=== PATIENT | female | born 1955 | race Caucasian/White ===

== ENCOUNTER 2018-11-07 10:33 | Day surgery (SDC) | payer BC ==
[~2018-11-07] VITALS: Ht 152.4 cm; Wt 98.3 kg
[~2018-11-07 10:33] MED LIST: ABAC300; ALBU90OI6 INH; ALBU90OI61 INH; ANTIOXIDANT FO1 EACH PO; ASCO500 PO; ASPI325 PO; ASPI325EC PO; ATOR40TA PO; BASAGLAR K100 UNIT/1 SC; BETA-CAROTENE PO; CEFP200 PO; CHOL10002; CYAN500 PO; DOXE10 PO; ESTNOR; FLUT44OIA INH; FURO40; Fibercon625 MG PO; Flovent Disku100 MCG INH; GABA100 PO; GEMF600 PO; IBUP800 PO; INS70/30I; INSLI100I; INSUASPI SC; INSUASPI SUBQ; INSULANI SC; INSULANI SUBQ; INSULANPEN; LISI20 PO; LISI5 PO; LO-DOSE ASPIRIN81 MG PO; METF500 PO; MULVITMINE PO; NIAC500 PO; NIACIN PO; Norco 5-325 Ta1 EACH PO; Novolin R100 UNIT/M SC; OMEG1CAP30 PO; OMEP20ER PO; ONDA4ODT MM; POLY500 PO; POTA10T; POTA10T PO; POTA20PAC PO; PRENATAL CAPLE1 EACH PO; PROM25S PR; Prinivil10 MG PO; ROSU10TA PO; ROSU5; SIMV40 PO; SPIR25 PO; TOCO400 PO; TRULICITY0.75 MG/0. SC; Verotin-Gr Cap1 EACH PO; ZINC15 PO; Zofran Odt4 MG SL; [UNRECOGNIZED DRUG - OTHER] PO; [UNRECOGNIZED DRUG - OTHER] PO
--- NOTE | 2018-11-07 12:12 | NUR ---
11/07/18 1212 Kalyani Elizabeth RN ADMINISTERED 25MG IV FENTANYL AND 1MG IV VERSED PER 'S ORDERS AT 1152. DR BRUCE USED THE SONOSITE AND NUMBING MEDICATION. AT 1200 RN ADMINISTERED AN ADDITIONAL 25MCG OF FENTANYL PER 'S ORDERS. PT TOLERATED PROCEDURE WELL. VSS. PT IS NOW ON 2L OF O2 PER DR MANCERA'S ORDERS. VSS. O2 SATS ARE 98% ON 2L OF O2 PER NASAL CANULA.
--- NOTE | 2018-11-07 13:52 | NUR ---
11/07/18 1351 Parvin Zepeda AT 1325 ASSUMED CARE OF PT FROM ORD.ERF. PT SITTING IN RECLINER SPEAKING WITH DAUGHTER, EXPRESSED WISHES TO GO HOME. KRISIT PO FLUIDS WELL. I GAVE PT A REUSEABLE ICE PACK WITH INSTRUCTIONS FOR USE. ALSO GIVEN SLING, APPLIED AND INSTRUCTED IN USE
== END 2018-11-07 23:59 | disposition home or self-care (01) ==
LOC: ORSCSDS 10:33
PROVIDERS: Orthopaedic Surgery
PROC: 01N54ZZ Release Median Nerve, Percutaneous Endoscopic Approach (ICD-10-PCS; principal; 2018-11-07 11:45)
DX: G56.01 Carpal tunnel syndrome, right upper limb (principal); I10 Essential (primary) hypertension; K21.9 Gastro-esophageal reflux disease without esophagitis; G47.33 Obstructive sleep apnea (adult) (pediatric); E11.9 Type 2 diabetes mellitus without complications; E66.9 Obesity, unspecified; Z68.41 Body mass index [BMI] 40.0-44.9, adult; Z79.82 Long term (current) use of aspirin; Z79.84 Long term (current) use of oral hypoglycemic drugs; Z79.4 Long term (current) use of insulin; Z79.899 Other long term (current) drug therapy
CPT/HCPCS: 82947; J0690; J2250; J3010; J7120

== ENCOUNTER 2018-11-20 09:42 | Day surgery (SDC) | payer MEDICARE, BC ==
[~2018-11-20] VITALS: Ht 152.4 cm; Wt 97.4 kg
== END 2018-11-20 11:29 | disposition home or self-care (01) ==
LOC: ORSCSDS 09:42
PROVIDERS: Internal Medicine Gastroenterology
PROC: 0DBN8ZX Excision of Sigmoid Colon, Via Natural or Artificial Opening Endoscopic, Diagnostic (ICD-10-PCS; principal; 2018-11-20 11:00)
DX: Z12.11 Encounter for screening for malignant neoplasm of colon (principal); K63.5 Polyp of colon; K57.30 Diverticulosis of large intestine without perforation or abscess without bleeding; Z86.010 Personal history of colon polyps; Z80.0 Family history of malignant neoplasm of digestive organs; I10 Essential (primary) hypertension; Z68.41 Body mass index [BMI] 40.0-44.9, adult; G47.30 Sleep apnea, unspecified; E11.9 Type 2 diabetes mellitus without complications; D68.51 Activated protein C resistance; Z79.82 Long term (current) use of aspirin; Z79.4 Long term (current) use of insulin; Z79.899 Other long term (current) drug therapy
CPT/HCPCS: 82947; 88305; J2704; J7120

== ENCOUNTER 2021-12-23 08:33 | Emergency (ER) | payer MEDICARE, BC ==
[~2021-12-23] VITALS: Ht 149.9 cm; Wt 95.2 kg
[~2021-12-23 08:33] MED LIST changes: +ALBU90OI INH; +BENZ100A PO; +Flovent 44 mc10.6 GM INH; +GABA300 PO; +HUMALOG KW100 UNIT/1 SC; +IBU800 MG PO; +NOVOLOG FL100 UNIT/3; +OXYB5ER PO; -TRULICITY0.75 MG/0. SC; +TRULICITY4.5 MG/0.5 SQ
[2021-12-23] MEDS ORDERED: ATOR40TA PO (09:07)
[2021-12-23] MEDS ORDERED: MAGNESIUM OXID500 MG PO (09:07)
[2021-12-23] MEDS ORDERED: ZINC15 PO (09:08)
[2021-12-23 09:16] LABS: BASOPHILS ABSOLUTE AUTO 0.05 K/mm3 (0.00-0.23); BASOPHILS PERCENT AUTO 1 % (0-2); EOSINOPHILS ABSOLUTE AUTO 0.23 K/mm3 (0.00-0.68); EOSINOPHILS PERCENT AUTO 3 % (0-6); Hemoglobin 13.2 g/dL (11.5-16.0); IMMATURE GRAN ABSOLUTE AUTO 0.02 K/mm3 (0.00-0.10); IMMATURE GRAN PERCENT AUTO 0 % (0-1); LYMPHOCYTES ABSOLUTE AUTO 2.38 K/mm3 (0.84-5.20); LYMPHOCYTES PERCENT AUTO 31 % (21-46); MONOCYTES ABSOLUTE AUTO 0.74 K/mm3 (0.16-1.47); MONOCYTES PERCENT AUTO 10 % (4-13); Mean Corpuscular HGB 30.9 pg (26.0-34.0); Mean Corpuscular HGB Conc 33.8 g/dL (31.5-36.5); Mean Corpuscular Volume 91 fL (80-100); Mean Platelet Volume 10.9 fL (9.1-12.4); NEUTROPHILS ABSOLUTE AUTO 4.17 K/mm3 (1.96-9.15); NEUTROPHILS PERCENT AUTO 55 % (41-73); Platelet Count 236 K/mm3 (150-400); RDW Standard Deviation 46.6 fL (35.1-46.3); Red Blood Cell Count 4.27 M/mm3 (3.80-5.20); White Blood Cell Count 7.59 K/mm3 (4.00-11.30)
[2021-12-23 10:26] LABS: Albumin, Blood 3.4 g/dL (3.4-5.0); Albumin/Globulin Ratio 0.9 (0.8-1.8); Bilirubin, Total 0.6 mg/dL (0.1-1.0); Bun/Creatinine Ratio 24.1 (12.0-20.0); Creatinine, Blood 0.46 mg/dL (0.40-1.00); Globulin, Blood 3.7 g/dL (2.2-4.0); Total Protein, Blood 7.1 g/dL (6.4-8.2)
[2021-12-23] MEDS ORDERED: AMOCLA875 PO (11:28)
[2021-12-23] MEDS ORDERED: PRED20 PO (11:29)
== END 2021-12-23 11:55 | disposition home or self-care (01) ==
LOC: ER 08:33
PROVIDERS: Emergency Medicine
DX: J20.9 Acute bronchitis, unspecified (principal); J44.0 Chronic obstructive pulmonary disease with (acute) lower respiratory infection; E11.9 Type 2 diabetes mellitus without complications; Z79.899 Other long term (current) drug therapy; Z79.4 Long term (current) use of insulin; Z79.82 Long term (current) use of aspirin
CPT/HCPCS: 71046; 80053; 83880; 84484; 85025; 93005; 93010; 94640; 94664; J1200; J2930

== ENCOUNTER 2022-03-10 11:32 | Day surgery (SDC) | payer MEDICARE, BC ==
[~2022-03-10] VITALS: Ht 149.9 cm; Wt 91.4 kg
[~2022-03-10 11:32] MED LIST changes: +AMOCLA875 PO; +MAGNESIUM OXID500 MG PO; +PRED20 PO
--- NOTE | 2022-03-10 12:41 | NUR ---
Ambulatory in Day Surgery History, Chart, Medications and Allergies reviewed before start of procedure. Pre-Op teaching done. Pt verbalizes understanding. Patient States Post-Procedure ride home has been arranged. Lungs diminished left great than right to anterior and posterior side. Occasional dry horse cough. Slight SOB. Sats >90%. Patient States Post-Procedure ride home has been arranged with Daughter.
[2022-03-10] MEDS ORDERED: MAGNESIUM OXID500 MG PO (12:53)
--- NOTE | 2022-03-10 16:35 | NUR ---
Discharge instructions reviewed with patient. Patient verbalizes understanding. Copy given to patient to take home. Discharged via wheelchair to private car for ride home.
== END 2022-03-10 16:00 | disposition home or self-care (01) ==
LOC: ORSCMMR 11:32
PROVIDERS: Surgery
PROC: 0JH60WZ Insertion of Totally Implantable Vascular Access Device into Chest Subcutaneous Tissue and Fascia, Open Approach (ICD-10-PCS; principal; 2022-03-10 13:30)
DX: C50.411 Malignant neoplasm of upper-outer quadrant of right female breast (principal); E11.9 Type 2 diabetes mellitus without complications; D68.51 Activated protein C resistance; F41.9 Anxiety disorder, unspecified; J45.909 Unspecified asthma, uncomplicated; I10 Essential (primary) hypertension; G47.33 Obstructive sleep apnea (adult) (pediatric); J44.9 Chronic obstructive pulmonary disease, unspecified; E66.01 Morbid (severe) obesity due to excess calories; Z68.41 Body mass index [BMI] 40.0-44.9, adult; Z79.82 Long term (current) use of aspirin; Z79.84 Long term (current) use of oral hypoglycemic drugs; Z79.4 Long term (current) use of insulin; Z79.51 Long term (current) use of inhaled steroids; Z79.899 Other long term (current) drug therapy
CPT/HCPCS: 77001; 82947; C1788; J0690; J1100; J1642; J2250; J2405; J2704; J2795; J3010; J7120

== ENCOUNTER → 2022-05-23 | Outpatient (CLI) | payer MEDICARE, BC ==
[2022-05-23 15:52] LABS: BASOPHILS ABSOLUTE AUTO 0.08 K/mm3 (0.00-0.23); BASOPHILS PERCENT AUTO 1 % (0-2); EOSINOPHILS ABSOLUTE AUTO 0.01 K/mm3 (0.00-0.68); EOSINOPHILS PERCENT AUTO 0 % (0-6); Hematocrit 35.6 % (33.0-51.0); Hemoglobin 11.9 g/dL (11.5-16.0); IMMATURE GRAN ABSOLUTE AUTO 0.16 K/mm3 (0.00-0.10); IMMATURE GRAN PERCENT AUTO 1 % (0-1); LYMPHOCYTES ABSOLUTE AUTO 3.17 K/mm3 (0.84-5.20); LYMPHOCYTES PERCENT AUTO 21 % (21-46); MONOCYTES ABSOLUTE AUTO 1.09 K/mm3 (0.16-1.47); MONOCYTES PERCENT AUTO 7 % (4-13); Mean Corpuscular HGB 30.7 pg (26.0-34.0); Mean Corpuscular HGB Conc 33.4 g/dL (31.5-36.5); Mean Corpuscular Volume 92 fL (80-100); NEUTROPHILS ABSOLUTE AUTO 10.34 K/mm3 (1.96-9.15); NEUTROPHILS PERCENT AUTO 70 % (41-73); NRBC ABSOLUTE 0.03 K/mm3 (0.00-0.02); NRBC Auto 0.2 /100 WBC (0.0-0.2); RDW Coefficient Variation 16.3 % (11.7-14.2); RDW Standard Deviation 53.4 fL (35.1-46.3); Red Blood Cell Count 3.87 M/mm3 (3.80-5.20); White Blood Cell Count 14.85 K/mm3 (4.00-11.30)
[2022-05-23 16:02] LABS: Albumin, Blood 2.9 g/dL (3.4-5.0); Albumin/Globulin Ratio 0.6 (0.8-1.8); Bun/Creatinine Ratio 8.2 (12.0-20.0); Calcium, Blood 8.9 mg/dL (8.5-10.1); Creatinine, Blood 0.61 mg/dL (0.40-1.00); Globulin, Blood 4.5 g/dL (2.2-4.0); Potassium, Blood 4.1 mmol/L (3.5-5.5); Total Protein, Blood 7.4 g/dL (6.4-8.2)
[2022-05-23 16:11] LABS: Mean Platelet Volume 10.4 fL (9.1-12.4); Platelet Count 255 K/mm3 (150-400)
== END | disposition home or self-care (01) ==
LOC: LAB 15:46 → LAB SHORT 15:46
PROVIDERS: Physician Assistant
DX: H70.009 Acute mastoiditis without complications, unspecified ear (principal)
CPT/HCPCS: 80053; 85025

== ENCOUNTER 2022-05-24 12:41 | Inpatient (IN) | payer MEDICARE, BC ==
[~2022-05-24] VITALS: Ht 149.9 cm; Wt 78.9 kg
[2022-05-24 14:43] LABS: BASOPHILS ABSOLUTE AUTO 0.08 K/mm3 (0.00-0.23); BASOPHILS PERCENT AUTO 1 % (0-2); EOSINOPHILS PERCENT AUTO 0 % (0-6); Hematocrit 37.2 % (33.0-51.0); Hemoglobin 12.8 g/dL (11.5-16.0); IMMATURE GRAN ABSOLUTE AUTO 0.23 K/mm3 (0.00-0.10); IMMATURE GRAN PERCENT AUTO 1 % (0-1); LYMPHOCYTES ABSOLUTE AUTO 2.44 K/mm3 (0.84-5.20); LYMPHOCYTES PERCENT AUTO 15 % (21-46); MONOCYTES ABSOLUTE AUTO 0.89 K/mm3 (0.16-1.47); MONOCYTES PERCENT AUTO 5 % (4-13); Mean Corpuscular HGB 30.8 pg (26.0-34.0); Mean Corpuscular HGB Conc 34.4 g/dL (31.5-36.5); Mean Corpuscular Volume 89 fL (80-100); NEUTROPHILS ABSOLUTE AUTO 12.79 K/mm3 (1.96-9.15); NEUTROPHILS PERCENT AUTO 78 % (41-73); RDW Coefficient Variation 16.3 % (11.7-14.2); Red Blood Cell Count 4.16 M/mm3 (3.80-5.20); White Blood Cell Count 16.43 K/mm3 (4.00-11.30)
[2022-05-24 14:57] LABS: Albumin/Globulin Ratio 0.6 (0.8-1.8); Bilirubin, Total 1.3 mg/dL (0.1-1.0); Bun/Creatinine Ratio 14.6 (12.0-20.0); C-REACTIVE PROTEIN, EXT RANGE 14.1 mg/dL (0.000-0.300); Calcium, Blood 9.1 mg/dL (8.5-10.1); Creatinine, Blood 0.41 mg/dL (0.40-1.00); Potassium, Blood 4.1 mmol/L (3.5-5.5)
[2022-05-24 15:01] LABS: Mean Platelet Volume 10.2 fL (9.1-12.4); Platelet Count 270 K/mm3 (150-400)
--- NOTE | 2022-05-25 03:31 | NUR ---
Patient resting in bed, no complaints of pain or discomfort.
[2022-05-25 05:29] LABS: Albumin, Blood 2.1 g/dL (3.4-5.0); Albumin/Globulin Ratio 0.6 (0.8-1.8); Bilirubin, Total 0.6 mg/dL (0.1-1.0); Bun/Creatinine Ratio 10.9 (12.0-20.0); Calcium, Blood 7.8 mg/dL (8.5-10.1); Creatinine, Blood 0.37 mg/dL (0.40-1.00); Globulin, Blood 3.6 g/dL (2.2-4.0); Potassium, Blood 3.3 mmol/L (3.5-5.5)
[2022-05-25 05:35] LABS: BASOPHILS ABSOLUTE AUTO 0.07 K/mm3 (0.00-0.23); BASOPHILS PERCENT AUTO 1 % (0-2); EOSINOPHILS PERCENT AUTO 0 % (0-6); Hematocrit 29.9 % (33.0-51.0); Hemoglobin 10.2 g/dL (11.5-16.0); IMMATURE GRAN ABSOLUTE AUTO 0.16 K/mm3 (0.00-0.10); IMMATURE GRAN PERCENT AUTO 1 % (0-1); LYMPHOCYTES ABSOLUTE AUTO 2.72 K/mm3 (0.84-5.20); LYMPHOCYTES PERCENT AUTO 22 % (21-46); MONOCYTES ABSOLUTE AUTO 0.84 K/mm3 (0.16-1.47); MONOCYTES PERCENT AUTO 7 % (4-13); Mean Corpuscular HGB 30.4 pg (26.0-34.0); Mean Corpuscular HGB Conc 34.1 g/dL (31.5-36.5); Mean Corpuscular Volume 89 fL (80-100); Mean Platelet Volume 10.2 fL (9.1-12.4); NEUTROPHILS ABSOLUTE AUTO 8.88 K/mm3 (1.96-9.15); NEUTROPHILS PERCENT AUTO 70 % (41-73); NRBC ABSOLUTE 0.02 K/mm3 (0.00-0.02); NRBC Auto 0.2 /100 WBC (0.0-0.2); Platelet Count 220 K/mm3 (150-400); RDW Coefficient Variation 16.1 % (11.7-14.2); RDW Standard Deviation 51.9 fL (35.1-46.3); Red Blood Cell Count 3.36 M/mm3 (3.80-5.20); White Blood Cell Count 12.67 K/mm3 (4.00-11.30)
[2022-05-25 06:06] LABS: Total Protein, Blood 5.7 g/dL (6.4-8.2)
--- NOTE | 2022-05-25 17:20 | NUR ---
SHIFT SUMMARY MS COYNE IS A&OX4. SHE HAS MAIN C/O R FACIAL SWELLING AND TENDERNESS. DULAUDID 0.5MG IV GIVEN FOR PAIN ONCE SO FAR THIS SHIFT. SHE C/O SOME NAUSEA JUST NOW, SAID THAT PHENERGAN PO WORKED FOR HER AT HOME SO TELEPHONE ORDER FROM DR LE FOR PHENERGAN 12.5-25MG PO Q6HRS PRN READ BACK AND ENTERED INTO [employer]. SHE IS STAND BY ASSISTANCE TO THE BATHROOM, HAS BEEN UP TO VOID SEVERAL TIMES AND HAS STEADY GAIT. IVF NS AT 75CC/HR CONTINUOUS. BLOOD GLUCOSE MEASUREMENTS AT 151-174 WITH NO COVERAGE. DIET CHANGED TO MECHANICAL SOFT ADA PER PT PREFERENCE. FACIAL ULTRASOUND [place]BLANC AT BEDSIDE THIS MORNING. BED LOW, CALL LIGHT IN REACH.
--- NOTE | 2022-05-26 06:32 | NUR ---
HYDROGEN PLANT OPERATOR SUMMARY PT A/OX4. DAUGHTER BRADLEY AT BEDSIDE AT START OF SHIFT. PT LEFT FA IV LEAKING. DC'D IV. PT STATES IV WAS PLACED USING ULTRASOUND. MULTIPLE ATTEMPTS TO START IV WITH ULTRASOUND NOT SUCCESSFUL. CALL TO [facility]SULTANT/DR HEWITT--NEW ORDER TO ACCESS CHEST METAPORT (PLACED FOR CHEMO TREATMENTS). PORT ACCESSED WITHOUT INCIDENT; CHARGE NURSE PRESENT FOR ACCESS. STERILE TECHNICHE USED. PT TOLERATED WELL; BLOOD RETURN AND FLUSH 2X. PT HAS BLOOD CLOTTING DISORDER AND CAN'T TAKE HEPARIN/LOVENOX. PT CURRENTLY GETTING NS 75MLS HR; WILL RUN KVO WHEN COMPLETE. PT HAD EPISODE OF NAUSEA AND VOMITTING AFTER GETTING DOSE OF IV DILAUDID. GAVE PT PO PHENERGAN. RIGHT SIDE OF NECK/FACE/EAR REMAINS RED/SWOLLEN. PT REPORTS CONSTANT PAINFULNESS; INCREASED WITH MOVEMENT/EATING/TALKING. PT HAD ANOTHER EPISODE OF N&v APROX 0600; MORNING MEDS NOT GIVEN DUE TO VOMMITING. CALL TO [facility] [employer] CONSULTANT/DR BALDERAS--NEW ORDER FOR ZOFRAN IV Q6 PRN. PT IS SBA TO BATHROOM; ABLE TO MAKE NEEDS KNOWN. CALL LIGHT IN REACH.
[2022-05-26 07:41] LABS: BASOPHILS ABSOLUTE AUTO 0.06 K/mm3 (0.00-0.23); BASOPHILS PERCENT AUTO 1 % (0-2); EOSINOPHILS PERCENT AUTO 0 % (0-6); Hematocrit 31.3 % (33.0-51.0); Hemoglobin 10.1 g/dL (11.5-16.0); IMMATURE GRAN ABSOLUTE AUTO 0.06 K/mm3 (0.00-0.10); IMMATURE GRAN PERCENT AUTO 1 % (0-1); LYMPHOCYTES ABSOLUTE AUTO 1.64 K/mm3 (0.84-5.20); LYMPHOCYTES PERCENT AUTO 15 % (21-46); MONOCYTES ABSOLUTE AUTO 0.89 K/mm3 (0.16-1.47); MONOCYTES PERCENT AUTO 8 % (4-13); Mean Corpuscular HGB 30.1 pg (26.0-34.0); Mean Corpuscular HGB Conc 32.3 g/dL (31.5-36.5); Mean Corpuscular Volume 93 fL (80-100); NEUTROPHILS PERCENT AUTO 76 % (41-73); Platelet Count 211 K/mm3 (150-400); RDW Coefficient Variation 16.5 % (11.7-14.2); Red Blood Cell Count 3.35 M/mm3 (3.80-5.20); White Blood Cell Count 11.15 K/mm3 (4.00-11.30)
[2022-05-26 08:01] LABS: Calcium, Blood 7.9 mg/dL (8.5-10.1); Creatinine, Blood 1.41 mg/dL (0.40-1.00); Potassium, Blood 3.6 mmol/L (3.5-5.5); Vancomycin, Trough 19.7 ug/mL (5.0-10.0)
--- NOTE | 2022-05-26 17:31 | NUR ---
DAYSHIFT SUMMARY Patient doing well this shift, no reports of nausea or vomiting. Continues to c/o pain and swelling in right side of face, Poor oral intake this shift, IV fluids infusing via mediport. IV ABX administred this shift. Patient resting comfortably most of the day. UA sent to lab. Vitals stable. Will continue plan of care.
--- NOTE | 2022-05-27 04:13 | NUR ---
SHIFT SUMMARY; NO ACUTE CHANGES OVERNIGHT. THE PT DENIES ANY CHEST PAIN OR PRESSURE. THE PT DOES REPORT SOME PRETTY SEVERE PAIN R/T TO HER R FACE SWELLING AND INFLAMMATION. NS REMAINS RUNNING THROUGH THE PTS ACCESSED MEDIPORT. THE PT IS CURRENTLY RESTING IN BED WITH THE BED IN THE LOWEST POSITION AND THE CALL LIGHT AT BEDSIDE.
[2022-05-27 06:14] LABS: BASOPHILS ABSOLUTE AUTO 0.04 K/mm3 (0.00-0.23); BASOPHILS PERCENT AUTO 0 % (0-2); EOSINOPHILS PERCENT AUTO 0 % (0-6); Hematocrit 31.9 % (33.0-51.0); IMMATURE GRAN ABSOLUTE AUTO 0.05 K/mm3 (0.00-0.10); IMMATURE GRAN PERCENT AUTO 1 % (0-1); LYMPHOCYTES ABSOLUTE AUTO 2.24 K/mm3 (0.84-5.20); LYMPHOCYTES PERCENT AUTO 24 % (21-46); MONOCYTES ABSOLUTE AUTO 0.69 K/mm3 (0.16-1.47); MONOCYTES PERCENT AUTO 7 % (4-13); Mean Corpuscular HGB Conc 34.5 g/dL (31.5-36.5); Mean Corpuscular Volume 90 fL (80-100); NEUTROPHILS ABSOLUTE AUTO 6.31 K/mm3 (1.96-9.15); NEUTROPHILS PERCENT AUTO 68 % (41-73); RDW Coefficient Variation 16.2 % (11.7-14.2); RDW Standard Deviation 53.1 fL (35.1-46.3); Red Blood Cell Count 3.55 M/mm3 (3.80-5.20); White Blood Cell Count 9.33 K/mm3 (4.00-11.30)
[2022-05-27 06:17] LABS: Mean Platelet Volume 10.2 fL (9.1-12.4); Platelet Count 196 K/mm3 (150-400)
[2022-05-27 06:29] LABS: Bun/Creatinine Ratio 5.8 (12.0-20.0); Calcium, Blood 8.1 mg/dL (8.5-10.1); Creatinine, Blood 1.38 mg/dL (0.40-1.00); Potassium, Blood 3.4 mmol/L (3.5-5.5)
--- NOTE | 2022-05-27 08:00 | NUR ---
pt sitting on the side of the bed awake a/ox3, pleasant and coopertive with care, follows commands well, denies pain at this time, lungs are clear in upper vee dim in bases, resp even and unlabored, no cough noted, on r/a, hrr, no edema noted to b/l le, mediport in place infusing fluids as ordered, site is clear, btx4, abd flat soft nontender, voids without diff, skin c/w/d, maew, ambulates well, gait noted to be steady, just needs help managing her lines, rosalinda, call light in reach.
--- NOTE | 2022-05-27 19:32 | NUR ---
pt was switched to LR at 125mls/hr, is not making it to the toilet, so had her start using a bsc, doing well with that, no complaints of pain today, no acute changes, feels that her swelling is going down and is less painful, call light in reach.
--- NOTE | 2022-05-28 04:16 | NUR ---
SHIFT SUMMARY; NO ACUTE CHANGES OVERNIGHT.THE PT RESTED IN BED T/O THE NIGHT. NO REQUEST FOR PRN PAIN MEDICATIONS THUS FAR THIS SHIFT. THE PT USED THE BSC T/O THE NIGHT INDEPENDENTLY. LR REMAINS RUNNING AT 125MLS/HR. CURRENLTY THE PT IS RESTING IN BED WITH THE BED IN THE LOWEST POSITION AND THE CALL LIGHT AT BEDSIDE.
[2022-05-28 05:56] LABS: BASOPHILS ABSOLUTE AUTO 0.03 K/mm3 (0.00-0.23); BASOPHILS PERCENT AUTO 0 % (0-2); EOSINOPHILS PERCENT AUTO 0 % (0-6); Hematocrit 28.8 % (33.0-51.0); Hemoglobin 9.4 g/dL (11.5-16.0); IMMATURE GRAN ABSOLUTE AUTO 0.02 K/mm3 (0.00-0.10); IMMATURE GRAN PERCENT AUTO 0 % (0-1); LYMPHOCYTES ABSOLUTE AUTO 1.82 K/mm3 (0.84-5.20); LYMPHOCYTES PERCENT AUTO 27 % (21-46); MONOCYTES ABSOLUTE AUTO 0.56 K/mm3 (0.16-1.47); MONOCYTES PERCENT AUTO 8 % (4-13); Mean Corpuscular HGB 29.8 pg (26.0-34.0); Mean Corpuscular HGB Conc 32.6 g/dL (31.5-36.5); Mean Corpuscular Volume 91 fL (80-100); Mean Platelet Volume 10.1 fL (9.1-12.4); NEUTROPHILS ABSOLUTE AUTO 4.29 K/mm3 (1.96-9.15); NEUTROPHILS PERCENT AUTO 64 % (41-73); Platelet Count 201 K/mm3 (150-400); RDW Coefficient Variation 16.3 % (11.7-14.2); RDW Standard Deviation 53.9 fL (35.1-46.3); Red Blood Cell Count 3.15 M/mm3 (3.80-5.20); White Blood Cell Count 6.72 K/mm3 (4.00-11.30)
[2022-05-28 06:16] LABS: Calcium, Blood 8.1 mg/dL (8.5-10.1); Potassium, Blood 2.9 mmol/L (3.5-5.5)
--- NOTE | 2022-05-28 09:00 | NUR ---
pt laying in bed sleeping, wakes easily, a/ox4, pleasant and cooperative with care, follows commands well, denies pain at this time, lungs are clear in upper, dim in bases, resp even and unlabored, no cough noted, hrr, no edema noted, ppp+1, cap refill <3sec, vs stable, afebrile, iv is mediport, to right chest wall, site is clear infusing L.R. at 125mls/hr, btx4, abd flat soft nontender, voids without diff, skin c/w/d, maew, rosalinda, call light in reach.
--- NOTE | 2022-05-28 16:47 | NUR ---
pt reports the swelling behind her ear is bigger than this am, and is more painful, did start her on tramadal this afternoon, took a nap after it was administered, notified Dr. Almeida about increased swelling will continue to monitor, will call if she needs better pain control, call light in reach
--- NOTE | 2022-05-28 18:08 | NUR ---
started pt on norco for pain control, she feels the area behind the ear is swelling more, is aware, no further changes this shift, call light in reach.
--- NOTE | 2022-05-29 04:09 | NUR ---
SHIFT SUMMARY; NO ACUTE CHANGES OVERNIGHT. PT RESTED IN BED T/O THE NIGHT. PT DENIES ANY CHEST PAIN OR PRESSURE THIS SHIFT. PT REPORTS A 4/10 PAIN ASSOCIATED WITH HER SWOLLEN GLAND ON HER R SIDE OF HER FACE/EAR. HOWEVER, PT DID NOT REQUEST ANY PRN PAIN MEDS T/O THE NIGHT THUS FAR. PT WAS INDEPENDENT TO THE BSC T/O THE NIGHT. NS REMAINS RUNNING TRHOUGH THE PTS MEDIPORT ON THE L CHEST WALL. CURRENTLY THE PT IS RESTING IN BED WITH THE BED IN THE LOWEST POSITION AND THE CALL LIGHT AT BEDSIDE.
[2022-05-29 06:00] LABS: BASOPHILS ABSOLUTE AUTO 0.03 K/mm3 (0.00-0.23); BASOPHILS PERCENT AUTO 0 % (0-2); EOSINOPHILS PERCENT AUTO 0 % (0-6); Hematocrit 31.4 % (33.0-51.0); Hemoglobin 10.3 g/dL (11.5-16.0); IMMATURE GRAN ABSOLUTE AUTO 0.04 K/mm3 (0.00-0.10); IMMATURE GRAN PERCENT AUTO 0 % (0-1); LYMPHOCYTES ABSOLUTE AUTO 3.73 K/mm3 (0.84-5.20); LYMPHOCYTES PERCENT AUTO 38 % (21-46); MONOCYTES ABSOLUTE AUTO 0.82 K/mm3 (0.16-1.47); MONOCYTES PERCENT AUTO 8 % (4-13); Mean Corpuscular HGB 30.2 pg (26.0-34.0); Mean Corpuscular HGB Conc 32.8 g/dL (31.5-36.5); Mean Corpuscular Volume 92 fL (80-100); NEUTROPHILS ABSOLUTE AUTO 5.32 K/mm3 (1.96-9.15); NEUTROPHILS PERCENT AUTO 54 % (41-73); Platelet Count 230 K/mm3 (150-400); RDW Coefficient Variation 16.8 % (11.7-14.2); RDW Standard Deviation 56.5 fL (35.1-46.3); Red Blood Cell Count 3.41 M/mm3 (3.80-5.20); White Blood Cell Count 9.94 K/mm3 (4.00-11.30)
[2022-05-29 06:51] LABS: Bun/Creatinine Ratio 4.8 (12.0-20.0); Calcium, Blood 8.5 mg/dL (8.5-10.1); Creatinine, Blood 0.83 mg/dL (0.40-1.00); Potassium, Blood 3.3 mmol/L (3.5-5.5)
--- NOTE | 2022-05-29 08:54 | NUR ---
Patient is saline locked at this time after the ns infused. dr. Encarnacion will review medications upon visit for futher order.
--- NOTE | 2022-05-29 13:40 | NUR ---
Diarrhea x 2 this am, brown, liquid/soft. some nausea as well, prn zofran solutab given per new order.
--- NOTE | 2022-05-29 17:42 | NUR ---
PATIENT IS STILL FEELING DOWN, FATIGUED. PATIENT HAD DIARRHEA X 3 THIS AFTERNOON. BANANNA FLAKES ORDERED. SHE DISLIKES THE FLAKES, HAVING A HARD TIME GETTING THEM DOWN. LUNGS HAVE SOME SCATTERED BASE CRACKLES. PAIN BEHIND EAR DUE TO PEROTIDITIS IS WORSE TODAY THAN YESTERDAY. SOME MEDICATION/FLUID CHANGES MADE. SALINE LOCKED. POTASSIUM PO GIVEN. PATIENT IS ABLE TO USE BSC WITH SBA, COGNITION IS ALERT AND ORIENTATED. BELLY BUTTON HAS A SCAB IN THE INNER FOLD. MAY USE BACITRACIN ON THE SKIN.
--- NOTE | 2022-05-30 04:48 | NUR ---
SHIFT SUMMARY: Pt A/Ox4 and call light appropriate. No acute changes this shift. Pt has c/o pain near her R ear/neck area. PRN pain medication given. She denies nausea, SOB, dizziness. No loose stools this shift. She is able to ambulate to the bedside commode independantly.
[2022-05-30 05:52] LABS: BASOPHILS ABSOLUTE AUTO 0.03 K/mm3 (0.00-0.23); BASOPHILS PERCENT AUTO 1 % (0-2); EOSINOPHILS PERCENT AUTO 0 % (0-6); Hematocrit 29.3 % (33.0-51.0); Hemoglobin 9.6 g/dL (11.5-16.0); IMMATURE GRAN ABSOLUTE AUTO 0.02 K/mm3 (0.00-0.10); IMMATURE GRAN PERCENT AUTO 0 % (0-1); LYMPHOCYTES ABSOLUTE AUTO 2.22 K/mm3 (0.84-5.20); LYMPHOCYTES PERCENT AUTO 36 % (21-46); MONOCYTES ABSOLUTE AUTO 0.61 K/mm3 (0.16-1.47); MONOCYTES PERCENT AUTO 10 % (4-13); Mean Corpuscular HGB 30.2 pg (26.0-34.0); Mean Corpuscular HGB Conc 32.8 g/dL (31.5-36.5); Mean Corpuscular Volume 92 fL (80-100); Mean Platelet Volume 9.9 fL (9.1-12.4); NEUTROPHILS ABSOLUTE AUTO 3.33 K/mm3 (1.96-9.15); NEUTROPHILS PERCENT AUTO 54 % (41-73); Platelet Count 201 K/mm3 (150-400); RDW Coefficient Variation 16.4 % (11.7-14.2); RDW Standard Deviation 55.7 fL (35.1-46.3); Red Blood Cell Count 3.18 M/mm3 (3.80-5.20); White Blood Cell Count 6.21 K/mm3 (4.00-11.30)
[2022-05-30 11:05] LABS: Albumin, Blood 1.9 g/dL (3.4-5.0); Anion Gap 5 mmol/L (6-16); Blood Urea Nitrogen 6 mg/dL (8-24); Bun/Creatinine Ratio 7.2 (12.0-20.0); CO2, Blood 30 mmol/L (21-32); Calcium, Blood 8.6 mg/dL (8.5-10.1); Chloride, Blood 106 mmol/L (98-108); Creatinine, Blood 0.83 mg/dL (0.40-1.00); Glomerular Filtration Rate 77 (60-); Glucose, Blood 78 mg/dL (70-99); Magnesium, Blood 1.4 mg/dL (1.6-2.4); Phosphorus, Blood 3.2 mg/dL (2.5-4.9); Potassium, Blood 3.4 mmol/L (3.5-5.5); Sodium, Blood 141 mmol/L (136-145)
--- NOTE | 2022-05-30 17:59 | NUR ---
PLAN FOR PATIENT IS TO DISCHARGE TOMORROW. DR. DAVE IS ATTEMPTING TO REGULATE BS AND INSULIN BEFORE DC. GLARGINE WAS DECREAED TO 20 UNITS BID. PATIENT HAS NOT NEEDED SLIDING SCALE COVERAGE WITH BREAKFAST (LOW BS), LUNCH OR DINNER. PATIENT DID TAKE A ZOFRAN FOR NAUSEA LATE IN THE AFTERNOON. IT WAS EFFECTIVE. PATIENTS PAIN IS BEHIND THE RIGHT EAR NEAR THE PAROTID GLAND, WHICH IS SWOLLEN. ABX ARE PO. PATIENT IS EATING MEALS AND COGNITION IS INTACT.
--- NOTE | 2022-05-31 04:24 | NUR ---
SHIFT SUMMARY: PT A/OX4 AND CALL LIGHT APPROPRIATE. OVERNIGHT PT HAD SOME C/O PAIN IN HER R EAR/JAW REGION. SHE DID NOT UTILIZE ANY PRN PAIN MEDICATIONS THIS SHIFT. SHE DENIES NAUSEA, SOB, DIZZINESS, NUMBNESS/TINGLING AND NO LOOSE STOOLS THIS SHIFT. SHE IS ABLE TO USE THE BEDSIDE COMMODE INDEPENDANTLY. SHE IS HOPEFUL TO D/C SOON.
[2022-05-31 06:46] LABS: Albumin, Blood 2.1 g/dL (3.4-5.0); Anion Gap 6 mmol/L (6-16); Blood Urea Nitrogen 10 mg/dL (8-24); Bun/Creatinine Ratio 11.7 (12.0-20.0); CO2, Blood 30 mmol/L (21-32); Calcium, Blood 8.7 mg/dL (8.5-10.1); Chloride, Blood 105 mmol/L (98-108); Creatinine, Blood 0.86 mg/dL (0.40-1.00); Glomerular Filtration Rate 74 (60-); Glucose, Blood 97 mg/dL (70-99); Phosphorus, Blood 3.3 mg/dL (2.5-4.9); Potassium, Blood 3.6 mmol/L (3.5-5.5); Sodium, Blood 141 mmol/L (136-145)
[2022-05-31] MEDS ORDERED: ONDA4ODT MM (10:59)
[2022-05-31] MEDS ORDERED: SULTRIDS PO (10:59)
[2022-05-31] MEDS ORDERED: POTA10T PO (10:59)
--- NOTE | 2022-05-31 15:09 | NUR ---
[facility] HEPAR[facility] FL[facility] 5ML [facility] PH[facility]ACY, PT KRISTI WELL
== END 2022-05-31 12:20 | disposition home or self-care (01) | DRG 872 ==
LOC: ER 12:41 → MEDS 16:58
PROVIDERS: Family Medicine; Physician Assistant; ADMIT Internal Medicine
DX: A41.9 Sepsis, unspecified organism (principal); C78.00 Secondary malignant neoplasm of unspecified lung; D68.4 Acquired coagulation factor deficiency; N17.9 Acute kidney failure, unspecified; E87.20 Acidosis, unspecified; I50.32 Chronic diastolic (congestive) heart failure; K11.21 Acute sialoadenitis; K21.9 Gastro-esophageal reflux disease without esophagitis; C50.919 Malignant neoplasm of unspecified site of unspecified female breast; K74.60 Unspecified cirrhosis of liver; Z66 Do not resuscitate; E11.65 Type 2 diabetes mellitus with hyperglycemia; I11.0 Hypertensive heart disease with heart failure; E87.6 Hypokalemia; F41.9 Anxiety disorder, unspecified; K22.70 Barrett's esophagus without dysplasia; R13.10 Dysphagia, unspecified; J44.9 Chronic obstructive pulmonary disease, unspecified; G47.33 Obstructive sleep apnea (adult) (pediatric); Z92.21 Personal history of antineoplastic chemotherapy; Z88.8 Allergy status to other drugs, medicaments and biological substances; Z88.1 Allergy status to other antibiotic agents; Z79.899 Other long term (current) drug therapy; Z79.4 Long term (current) use of insulin; Z79.52 Long term (current) use of systemic steroids; Z79.82 Long term (current) use of aspirin; Z79.84 Long term (current) use of oral hypoglycemic drugs; Z90.710 Acquired absence of both cervix and uterus; Z98.890 Other specified postprocedural states; Z90.49 Acquired absence of other specified parts of digestive tract
CPT/HCPCS: 36415; 76536; 76770; 80048; 80053; 80069; 80202; 82570; 82947; 83605; 83735; 84132; 84300; 85025; 86140; 86141; 87040; 96365; 96366; 96367; 99285-25; A9270; J0295; J1170; J1642; J1650; J1815; J2405; J2543; J3370; J7030; J7050; J7120

== ENCOUNTER → 2022-06-13 | Outpatient (CLI) | payer MEDICARE, BC ==
[~2022-06-13] MED LIST changes: +SULTRIDS PO
[2022-06-15 11:22] LABS: C DIFFICILE DNA NEGATIVE (Negative)
== END ==
LOC: LAB SHORT 16:05 → LAB 16:05
PROVIDERS: Physician Assistant
DX: R19.7 Diarrhea, unspecified (principal)
CPT/HCPCS: 87493

== ENCOUNTER → 2022-07-03 | Outpatient (CLI) | payer MEDICARE, BC ==
[2022-07-03 15:28] LABS: BASOPHILS ABSOLUTE AUTO 0.01 K/mm3 (0.00-0.23); BASOPHILS PERCENT AUTO 0 % (0-2); EOSINOPHILS PERCENT AUTO 0 % (0-6); Hematocrit 30.4 % (33.0-51.0); Hemoglobin 10.4 g/dL (11.5-16.0); IMMATURE GRAN ABSOLUTE AUTO 0.03 K/mm3 (0.00-0.10); IMMATURE GRAN PERCENT AUTO 0 % (0-1); LYMPHOCYTES ABSOLUTE AUTO 0.73 K/mm3 (0.84-5.20); LYMPHOCYTES PERCENT AUTO 9 % (21-46); MONOCYTES ABSOLUTE AUTO 0.09 K/mm3 (0.16-1.47); MONOCYTES PERCENT AUTO 1 % (4-13); Mean Corpuscular HGB 30.9 pg (26.0-34.0); Mean Corpuscular HGB Conc 34.2 g/dL (31.5-36.5); Mean Corpuscular Volume 90 fL (80-100); Mean Platelet Volume 11.1 fL (9.1-12.4); NEUTROPHILS ABSOLUTE AUTO 6.96 K/mm3 (1.96-9.15); NEUTROPHILS PERCENT AUTO 89 % (41-73); Platelet Count 204 K/mm3 (150-400); RDW Standard Deviation 45.5 fL (35.1-46.3); Red Blood Cell Count 3.37 M/mm3 (3.80-5.20); White Blood Cell Count 7.82 K/mm3 (4.00-11.30)
[2022-07-03 19:21] LABS: Albumin, Blood 2.2 g/dL (3.4-5.0); Albumin/Globulin Ratio 0.6 (0.8-1.8); Bilirubin, Total 0.5 mg/dL (0.1-1.0); Bun/Creatinine Ratio 30.7 (12.0-20.0); Calcium, Blood 8.5 mg/dL (8.5-10.1); Creatinine, Blood 0.49 mg/dL (0.40-1.00); Globulin, Blood 3.6 g/dL (2.2-4.0); Potassium, Blood 4.9 mmol/L (3.5-5.5); Total Protein, Blood 5.8 g/dL (6.4-8.2)
== END | disposition home or self-care (01) ==
LOC: LAB SHORT 15:00 → LAB 15:00
PROVIDERS: Nurse Practitioner
DX: E87.1 Hypo-osmolality and hyponatremia (principal); E87.6 Hypokalemia
CPT/HCPCS: 80053; 85025

== ENCOUNTER 2022-07-07 19:30 | Observation (INO) | payer MEDICARE, BC ==
[~2022-07-07] VITALS: Ht 149.9 cm; Wt 75.2 kg
[~2022-07-07 19:30] MED LIST changes: -NOVOLOG FL100 UNIT/3; +NOVOLOG FL100 UNIT/3 SC
[2022-07-07 22:05] LABS: BASOPHILS ABSOLUTE AUTO 0.05 K/mm3 (0.00-0.23); BASOPHILS PERCENT AUTO 1 % (0-2); EOSINOPHILS PERCENT AUTO 0 % (0-6); Hematocrit 34.5 % (33.0-51.0); Hemoglobin 11.4 g/dL (11.5-16.0); IMMATURE GRAN ABSOLUTE AUTO 0.12 K/mm3 (0.00-0.10); IMMATURE GRAN PERCENT AUTO 3 % (0-1); LYMPHOCYTES ABSOLUTE AUTO 0.43 K/mm3 (0.84-5.20); LYMPHOCYTES PERCENT AUTO 11 % (21-46); MONOCYTES ABSOLUTE AUTO 0.03 K/mm3 (0.16-1.47); MONOCYTES PERCENT AUTO 1 % (4-13); Mean Corpuscular HGB 30.6 pg (26.0-34.0); Mean Corpuscular Volume 93 fL (80-100); Mean Platelet Volume 11.8 fL (9.1-12.4); NEUTROPHILS ABSOLUTE AUTO 3.34 K/mm3 (1.96-9.15); NEUTROPHILS PERCENT AUTO 84 % (41-73); Platelet Count 160 K/mm3 (150-400); RDW Coefficient Variation 14.3 % (11.7-14.2); RDW Standard Deviation 48.2 fL (35.1-46.3); Red Blood Cell Count 3.72 M/mm3 (3.80-5.20); White Blood Cell Count 3.97 K/mm3 (4.00-11.30)
[2022-07-07 22:23] LABS: Albumin, Blood 2.7 g/dL (3.4-5.0); Albumin/Globulin Ratio 0.7 (0.8-1.8); Bilirubin, Total 0.7 mg/dL (0.1-1.0); Bun/Creatinine Ratio 21.7 (12.0-20.0); Calcium, Blood 8.8 mg/dL (8.5-10.1); Creatinine, Blood 0.51 mg/dL (0.40-1.00); Globulin, Blood 3.9 g/dL (2.2-4.0); Potassium, Blood 4.9 mmol/L (3.5-5.5); Total Protein, Blood 6.6 g/dL (6.4-8.2)
[2022-07-08] MEDS ORDERED: PROM12.5S (01:32)
[2022-07-08] MEDS ORDERED: LOPERAMIDE212 PO (01:32)
[2022-07-08] MEDS ORDERED: DEXA4 (01:33)
--- NOTE | 2022-07-08 03:20 | NUR ---
ADMIT NOTE HANDOFF RECEIVED FROM MEAT SCRUBBER JASON. PT ARRIVED TO FLOOR VIA GURNEY. PT ORIENTED TO UNIT. IV FLUIDS STARTED ORDERED. PT IS NPO. PERSONAL POSSESSIONS WITH PT. CALL BUTTON WITHIN REACH
--- NOTE | 2022-07-08 05:00 | NUR ---
SHIFT SUMMARY ADMITTED FOR N/V AND DYSPHAGIA. FULL CODE. DEHYDRATED. IV FLUIDS INFUSING. AMRIK AREA SEVERE RASH, CREAM APPLIED. SHE IS A&O X3-4. SHE IS WEAK, BEDPAN FOR BM'S. INCONTINENT, PUREWICK IN PLACE. MEDIPORT IN PLACE, CURRENTLY UNDERGOING CHEMO TX FOR BREAST CANCER STG 4. HX OF ESOPHAGEAL STRICTURE. Q6 CBG'S. NPO.
[2022-07-08 09:48] LABS: Hematocrit 32.6 % (33.0-51.0); Hemoglobin 10.7 g/dL (11.5-16.0); Mean Corpuscular HGB 30.6 pg (26.0-34.0); Mean Corpuscular HGB Conc 32.8 g/dL (31.5-36.5); Mean Corpuscular Volume 93 fL (80-100); Mean Platelet Volume 11.3 fL (9.1-12.4); Platelet Count 160 K/mm3 (150-400); RDW Coefficient Variation 14.6 % (11.7-14.2); White Blood Cell Count 1.95 K/mm3 (4.00-11.30)
[2022-07-08 10:00] LABS: Magnesium, Blood 2.2 mg/dL (1.6-2.4)
[2022-07-08 10:01] LABS: Albumin, Blood 2.5 g/dL (3.4-5.0); Albumin/Globulin Ratio 0.7 (0.8-1.8); Bilirubin, Total 0.6 mg/dL (0.1-1.0); Bun/Creatinine Ratio 24.7 (12.0-20.0); Calcium, Blood 8.4 mg/dL (8.5-10.1); Creatinine, Blood 0.45 mg/dL (0.40-1.00); Globulin, Blood 3.6 g/dL (2.2-4.0); Potassium, Blood 3.9 mmol/L (3.5-5.5); Total Protein, Blood 6.1 g/dL (6.4-8.2)
[2022-07-08 10:30] LABS: BASOPHILS PERCENT MAN 0 % (0-2); EOSINOPHILS PERCENT MAN 0 % (0-6); LYMPHOCYTES ABSOLUTE MAN 0.42 K/mm3 (0.84-5.20); LYMPHOCYTES PERCENT MAN 22 % (21-46); MONOCYTES ABSOLUTE MAN 0.03 K/mm3 (0.16-1.47); MONOCYTES PERCENT MAN 2 % (4-13); NEUTROPHILS ABSOLUTE MAN 1.48 K/mm3 (1.96-9.15); SEG NEUTROPHILS PERCENT MAN 76 % (41-73); TOTAL CELLS COUNTED 100
--- NOTE | 2022-07-08 16:57 | NUR ---
SHIFT SUMMARY PATIENT IS ALERT AND ORIENTED. PATIENT HAS HAD NO ACUTE EVENTS THIS SHIFT. IV FLUIDS INFUSING ALL SHIFT. PATIENTS SISTER HAS BEEN WITH PATIENT OVERNIGHT AND ALL DAY AND HAS BEEN HELPFUL. PATIENT HAS A RASH THAT HAS BEEN MEDICATED. VITAL SIGNS REVIEWED. PATIENT HAS BEEN NPO FOR PROCEDURE BUT APPLESAUCE AND MEDICATIONS PUSHED PROCEDURE UNTIL TOMORROW. PATIENT TO REMAIN ON WATER ONLY AFTER MIDNIGHT AND NPO AFTER 0500 FOR AM PROCEDURE. PATIENT HAS NOT COMPLAINED OF PAIN, NAUSEA, SOB OR VOMITTING TODAY. BED IN LOCKED AND LOWEST POSITION. CALL LIGHT IN PLACE. WILL MONITOR UNTIL SHIFT CHANGE.
[2022-07-09 05:12] LABS: Albumin, Blood 2.3 g/dL (3.4-5.0); Anion Gap 2 mmol/L (6-16); Blood Urea Nitrogen 8 mg/dL (8-24); Bun/Creatinine Ratio 19.1 (12.0-20.0); CO2, Blood 28 mmol/L (21-32); Calcium, Blood 8.4 mg/dL (8.5-10.1); Chloride, Blood 112 mmol/L (98-108); Creatinine, Blood 0.42 mg/dL (0.40-1.00); Glomerular Filtration Rate 106 (60-); Glucose, Blood 275 mg/dL (70-99); Phosphorus, Blood 1.7 mg/dL (2.5-4.9); Potassium, Blood 3.5 mmol/L (3.5-5.5); Sodium, Blood 142 mmol/L (136-145)
--- NOTE | 2022-07-09 05:36 | NUR ---
SHIFT SUMMARY PT A&OX4- PT SISTER AT BEDISE, PT NPO OF MIDNIGHT FOR EGD SCHEDULED THIS AM- PT SISTER AT BEDSIDE- APPLIED NYSTATIN CREAM TO RASH IN AMRIK AREA- PT REQUESTING POWDER D/T PAINFUL WHEN APPLIED- PT IV LEAKING/INFILTRATED- REMOVED IV RIGHT AC- ATTEMPTED TO START ANOTHER LINE- PT IS REQUESTING TO HAVE PAIN MEDICATION AND LIDOCAINE BEFORE IV START ATTEMPTED TO TALK TO HER RE: STARTING IV- PT SLEEPING AND WOKE UP AND REQUESTED IV START TO BE DONE LATER-
[2022-07-09 06:52] LABS: Hematocrit 29.9 % (33.0-51.0); Hemoglobin 9.7 g/dL (11.5-16.0); Mean Corpuscular HGB 30.6 pg (26.0-34.0); Mean Corpuscular HGB Conc 32.4 g/dL (31.5-36.5); Mean Corpuscular Volume 94 fL (80-100); Mean Platelet Volume 11.6 fL (9.1-12.4); Platelet Count 161 K/mm3 (150-400); RDW Coefficient Variation 14.6 % (11.7-14.2); RDW Standard Deviation 50.4 fL (35.1-46.3); Red Blood Cell Count 3.17 M/mm3 (3.80-5.20); White Blood Cell Count 1.79 K/mm3 (4.00-11.30)
[2022-07-09 07:15] LABS: BASOPHILS PERCENT MAN 0 % (0-2); EOSINOPHILS PERCENT MAN 0 % (0-6); LYMPHOCYTES ABSOLUTE MAN 0.89 K/mm3 (0.84-5.20); LYMPHOCYTES PERCENT MAN 50 % (21-46); MONOCYTES ABSOLUTE MAN 0.01 K/mm3 (0.16-1.47); MONOCYTES PERCENT MAN 1 % (4-13); NEUTROPHILS ABSOLUTE MAN 0.87 K/mm3 (1.96-9.15); SEG NEUTROPHILS PERCENT MAN 49 % (41-73); TOTAL CELLS COUNTED 100
--- NOTE | 2022-07-09 07:49 | NUR ---
07/09/22 0748 [place] History, Chart, Medications and Allergies reviewed before start of procedure. MONITOR INTACT WITH CONTINUOUS PULSE OXIMETRY AND INTERMITTENT BP. 3-LEAD EKG REVIEWED WITH PHYSICIAN PRIOR TO START OF PROCEDURE. O2 VIA N/C INTACT THROUGHOUT SEDATION/PROCEDURE. Bite Block Placed.
--- NOTE | 2022-07-09 07:53 | NUR ---
LATE ENTRY FOR 729 PT ARRIVED TO UNIT VIA GURN. UNABLE TO TRANSFER SELF TO OR GURN. History, Chart, Medications and Allergies reviewed before start of procedure. Patient confirms NPO status and agrees with scheduled surgery.
--- NOTE | 2022-07-09 16:39 | NUR ---
SHIFT SUMMARY PATIENT IS ALERT AND ORIENTATED. PATIENT HAS BEEN PLEASENT AND COOPERATIVE WITH CARE. PATIENT WENT DOWN FOR AN ESOPHAGUS DILATION EARLY IN THE SHIFT. PATIENT TOLERATED THE PROCEDURE WELL. PATIENT HAS BEEN ABLE TO TOLERATE THE CLEAR LIQUIDS SO FAR. PATIENT HAS BEEN RESTING MOST OF THE SHIFT PER THE PATIENT, "DIDNT SLEEP WELL LAST NIGHT". PATIENT HAS NOT COMPLAINED OF PAIN, VOMITTING OR SOB. PATIENT DID REPORT NAUSEA AND WAS GIVEN ZOFRAN PRN RIGHT BEFORE PROCEDURE. PATIENT HAS A NEW IV PLACED IN HAND.
[2022-07-10 04:20] LABS: BASOPHILS ABSOLUTE AUTO 0.02 K/mm3 (0.00-0.23); BASOPHILS PERCENT AUTO 1 % (0-2); EOSINOPHILS ABSOLUTE AUTO 0.03 K/mm3 (0.00-0.68); EOSINOPHILS PERCENT AUTO 2 % (0-6); Hematocrit 28.4 % (33.0-51.0); Hemoglobin 9.5 g/dL (11.5-16.0); IMMATURE GRAN ABSOLUTE AUTO 0.04 K/mm3 (0.00-0.10); IMMATURE GRAN PERCENT AUTO 3 % (0-1); LYMPHOCYTES ABSOLUTE AUTO 1.06 K/mm3 (0.84-5.20); LYMPHOCYTES PERCENT AUTO 73 % (21-46); MONOCYTES ABSOLUTE AUTO 0.07 K/mm3 (0.16-1.47); MONOCYTES PERCENT AUTO 5 % (4-13); Mean Corpuscular HGB 30.4 pg (26.0-34.0); Mean Corpuscular HGB Conc 33.5 g/dL (31.5-36.5); Mean Corpuscular Volume 91 fL (80-100); Mean Platelet Volume 11.2 fL (9.1-12.4); NEUTROPHILS ABSOLUTE AUTO 0.23 K/mm3 (1.96-9.15); NEUTROPHILS PERCENT AUTO 16 % (41-73); Platelet Count 155 K/mm3 (150-400); RDW Coefficient Variation 14.3 % (11.7-14.2); RDW Standard Deviation 46.8 fL (35.1-46.3); Red Blood Cell Count 3.12 M/mm3 (3.80-5.20); White Blood Cell Count 1.45 K/mm3 (4.00-11.30)
[2022-07-10 04:37] LABS: Albumin, Blood 2.1 g/dL (3.4-5.0); Anion Gap 3 mmol/L (6-16); Blood Urea Nitrogen 5 mg/dL (8-24); Bun/Creatinine Ratio 12.7 (12.0-20.0); CO2, Blood 28 mmol/L (21-32); Calcium, Blood 7.6 mg/dL (8.5-10.1); Chloride, Blood 108 mmol/L (98-108); Creatinine, Blood 0.39 mg/dL (0.40-1.00); Glomerular Filtration Rate 108 (60-); Glucose, Blood 262 mg/dL (70-99); Phosphorus, Blood 2.1 mg/dL (2.5-4.9); Potassium, Blood 2.8 mmol/L (3.5-5.5); Sodium, Blood 139 mmol/L (136-145)
--- NOTE | 2022-07-10 05:18 | NUR ---
SHIFT SUMMARY PT SITTING UP IN BED DURING BEDSIDE ROUNDS- PT DENIES NAUSEA SINCE PROCEDURE THIS AM- PT REPORTS SWALLOWING IS BETTER SINCE ESPHOGEAL STRETCHING TODAY - CBG CONTINUE TO BE Q6H- PT REPORTS NOT EAING MUCH IN CALORIES TODAY- WILL CONTINUE TO MONITOR Q6H- PT TOOK SCHEDULED MEDICATION CRUSHED IN APPLE SAUCE- CLEANED PANNUS AREA AND REAPPLIED NYSTATIN POWDER- PT CALL APPROPRIATE
--- NOTE | 2022-07-10 16:14 | NUR ---
Upon receiving a referral for spiritual care, I visited the patient. Rajesh tells me about her cancer and diabetes. She talks about her Taoism bradly and the strength she gains from her prayers as she deals with the challenges of chemotherapy and cancer. She talks at length about her family and the grady, support and love that her family brings her. She discusses and dying and states that she is ready to and fairly close to quiting treatment due to the heavy toll it takes on her body each time and the poor quality of life that she has while going through it. I encourage self-care, normalize her experience and provide therapeutic listening, gentle dormitory counselor and prayer. Patient responded well and showed signs of increased peace and sense of empowerment. I will continue to remain available to patient and family.
--- NOTE | 2022-07-10 18:30 | NUR ---
PATIENT A/OX4, UP WITH FWW AND SBA TO CHAIR TODAY. VSS, ON RA. CONTINENT OF BOWEL/BLADDER. LARGE YEARST RASH WITH OPEM AREAS TO GROIN AND PANNUS. NYSTATIN POWDER AND PILLOW CASES PLACED TO TREAT. PATIENT ADVANCED TO [facility] SOFT DIET TODAY AND IS TOLERATING WELL. ACHS BLOOD SUGARS, COVERAGE PER SS. DENIES ANY PAIN OR DISCOMFORT. CALM AND COOPERATIVE WITH CARE, CALLS APPROPRIATELY FOR ASSISTANCE.
--- NOTE | 2022-07-10 23:08 | NUR ---
TRANSFERRED TO ROOM 364 VIA BED, AFTER CLEANING UP FROM LOOSE INCONT BOWEL MOVEMENT. ACCOMPANIED BY SISTER. HOOKED UP TO CHANNING, CALL LIGHT IN ERACH. WILL CONTIONUE TO MONITOR.
[2022-07-11 04:47] LABS: BASOPHILS ABSOLUTE AUTO 0.02 K/mm3 (0.00-0.23); BASOPHILS PERCENT AUTO 1 % (0-2); EOSINOPHILS ABSOLUTE AUTO 0.02 K/mm3 (0.00-0.68); EOSINOPHILS PERCENT AUTO 1 % (0-6); Hemoglobin 10.1 g/dL (11.5-16.0); IMMATURE GRAN ABSOLUTE AUTO 0.01 K/mm3 (0.00-0.10); IMMATURE GRAN PERCENT AUTO 1 % (0-1); LYMPHOCYTES ABSOLUTE AUTO 1.16 K/mm3 (0.84-5.20); LYMPHOCYTES PERCENT AUTO 70 % (21-46); MONOCYTES ABSOLUTE AUTO 0.19 K/mm3 (0.16-1.47); MONOCYTES PERCENT AUTO 11 % (4-13); Mean Corpuscular HGB Conc 34.8 g/dL (31.5-36.5); Mean Corpuscular Volume 89 fL (80-100); Mean Platelet Volume 11.4 fL (9.1-12.4); NEUTROPHILS ABSOLUTE AUTO 0.26 K/mm3 (1.96-9.15); NEUTROPHILS PERCENT AUTO 16 % (41-73); Platelet Count 153 K/mm3 (150-400); RDW Coefficient Variation 14.1 % (11.7-14.2); RDW Standard Deviation 45.4 fL (35.1-46.3); Red Blood Cell Count 3.26 M/mm3 (3.80-5.20); White Blood Cell Count 1.66 K/mm3 (4.00-11.30)
[2022-07-11 05:07] LABS: Albumin, Blood 2.2 g/dL (3.4-5.0); Anion Gap 4 mmol/L (6-16); Blood Urea Nitrogen 5 mg/dL (8-24); Bun/Creatinine Ratio 13.4 (12.0-20.0); CO2, Blood 28 mmol/L (21-32); Calcium, Blood 7.9 mg/dL (8.5-10.1); Chloride, Blood 106 mmol/L (98-108); Creatinine, Blood 0.37 mg/dL (0.40-1.00); Glomerular Filtration Rate 110 (60-); Glucose, Blood 319 mg/dL (70-99); Phosphorus, Blood 2.2 mg/dL (2.5-4.9); Potassium, Blood 2.7 mmol/L (3.5-5.5); Sodium, Blood 138 mmol/L (136-145)
--- NOTE | 2022-07-11 05:11 | NUR ---
TEST BAKER SUMMARY VSS. WAS MOVED FROM ROOM 353 TO 364 EARLIER IN THE SHIFT. SISTER REMAINS AT BEDSIDE. PT WAS ADMITTED A FEW DAYS AGO FOR DYSPHAGIA, PREVIOUS NURSE REPORTED PT HAD THROAT DILATED 07/09/22. TOLERATING MEDS WITH SUGAR FREE PUDDING. NOTE MULTIPLE AREAS OF SKIN RASH AND RAWNESS OF GROIN AND IN FOLDS OF PANUS. INCONT OF BOWEL - LOOSE STOOLS. RECEIVED IMODIUM X 1 TO ADDRESS ISSUE. HAS BEEN RSETING QUIETLY WITH OCCASIONAL INTERRUPTIONS SINCE TRANSFER. CALL LIGHT IN REACH. WILL CONTINUE TO MONITOR.
[2022-07-11] MEDS ORDERED: MICONAZOLE NITR85 GM TOP (11:41)
[2022-07-11] MEDS ORDERED: POTCHL20ER PO (11:41)
--- NOTE | 2022-07-11 16:32 | NUR ---
Discharge instructions given to pt. Family on the way to order picker patient.iv removed all belongings at bedside with patient.
== END 2022-07-11 18:50 | disposition home health service (06) ==
LOC: ER 19:30 → MEDS 19:31
PROVIDERS: Internal Medicine Endocrinology, Diabetes & Metabolism; Internal Medicine Gastroenterology; Student in an Organized Health Care Education/Training Program; ADMIT Student in an Organized Health Care Education/Training Program
PROC: 0D753ZZ Dilation of Esophagus, Percutaneous Approach (ICD-10-PCS; principal; 2022-07-09 07:30)
DX: K22.2 Esophageal obstruction (principal); C50.919 Malignant neoplasm of unspecified site of unspecified female breast; C78.00 Secondary malignant neoplasm of unspecified lung; E11.9 Type 2 diabetes mellitus without complications; D68.51 Activated protein C resistance; K21.9 Gastro-esophageal reflux disease without esophagitis; I11.9 Hypertensive heart disease without heart failure; F41.9 Anxiety disorder, unspecified; J45.909 Unspecified asthma, uncomplicated; K22.70 Barrett's esophagus without dysplasia; B37.2 Candidiasis of skin and nail; K74.60 Unspecified cirrhosis of liver; Z88.8 Allergy status to other drugs, medicaments and biological substances; Z79.899 Other long term (current) drug therapy; Z79.4 Long term (current) use of insulin
CPT/HCPCS: 36415; 70491; 71045; 80053; 80069; 82947; 83036; 83735; 85025; 92526; 92610; 96361; 96372; 96374; 96375; 97116; 97162; 97166; 97530; 97535; 99285-25; A9270; G0378; J0690; J1650; J1815; J2250; J2405; J2550; J2704; J2765; J7030; J7120; Q9967

== ENCOUNTER → 2022-10-05 | Outpatient (CLI) | payer MEDICARE, BC ==
[~2022-10-05] MED LIST changes: +DEXA4; +LOPERAMIDE212 PO; +MICONAZOLE NITR85 GM TOP; +POTCHL20ER PO; +PROM12.5S
[2022-10-06 17:30] LABS: Adenovirus F 40/41 Not Detected (NOT DETECT); Astrovirus Not Detected (NOT DETECT); Campylobacter Sp Not Detected (NOT DETECT); Cryptosporidium Not Detected (NOT DETECT); Cyclospora Cayetanensis Not Detected (NOT DETECT); E. Coli O157 Not Detected (NOT DETECT); Entamoeba Histolytica Not Detected (NOT DETECT); Enteroaggregative E. coli-EAEC Not Detected (NOT DETECT); Enteropathogenic E. coli-EPEC Not Detected (NOT DETECT); Enterotoxigenic E. coli-ETEC Not Detected (NOT DETECT); Giardia Lamblia Not Detected (NOT DETECT); Norovirus GI/GII Not Detected (NOT DETECT); Plesiomonas Shigelloides Not Detected (NOT DETECT); Rotavirus A Not Detected (NOT DETECT); Salmonella Sp Not Detected (NOT DETECT); Sapovirus Not Detected (NOT DETECT); Shiga Toxin-prod E. coli-STEC Not Detected (NOT DETECT); Shigella/Enteroin E. coli-EIEC Not Detected (NOT DETECT); Vibrio Cholerae Not Detected (NOT DETECT); Vibrio Sp Not Detected (NOT DETECT); Yersinia Enterocolitica Not Detected (NOT DETECT)
== END | disposition home or self-care (01) ==
LOC: LAB SHORT 09:00 → LAB 09:00
PROVIDERS: Physician Assistant
DX: R19.7 Diarrhea, unspecified (principal)
CPT/HCPCS: 87507

== ENCOUNTER → 2022-10-10 | Outpatient (CLI) | payer MEDICARE, BC ==
[2022-10-10 16:21] LABS: BASOPHILS ABSOLUTE AUTO 0.01 K/mm3 (0.00-0.23); BASOPHILS PERCENT AUTO 0 % (0-2); EOSINOPHILS ABSOLUTE AUTO 0.03 K/mm3 (0.00-0.68); EOSINOPHILS PERCENT AUTO 1 % (0-6); Hematocrit 33.8 % (33.0-51.0); Hemoglobin 11.7 g/dL (11.5-16.0); IMMATURE GRAN ABSOLUTE AUTO 0.01 K/mm3 (0.00-0.10); IMMATURE GRAN PERCENT AUTO 0 % (0-1); LYMPHOCYTES ABSOLUTE AUTO 2.65 K/mm3 (0.84-5.20); LYMPHOCYTES PERCENT AUTO 61 % (21-46); MONOCYTES ABSOLUTE AUTO 0.49 K/mm3 (0.16-1.47); MONOCYTES PERCENT AUTO 11 % (4-13); Mean Corpuscular HGB 31.3 pg (26.0-34.0); Mean Corpuscular HGB Conc 34.6 g/dL (31.5-36.5); Mean Corpuscular Volume 90 fL (80-100); Mean Platelet Volume 10.6 fL (9.1-12.4); NEUTROPHILS ABSOLUTE AUTO 1.19 K/mm3 (1.96-9.15); NEUTROPHILS PERCENT AUTO 27 % (41-73); Platelet Count 247 K/mm3 (150-400); RDW Coefficient Variation 14.6 % (11.7-14.2); RDW Standard Deviation 46.9 fL (35.1-46.3); Red Blood Cell Count 3.74 M/mm3 (3.80-5.20); White Blood Cell Count 4.38 K/mm3 (4.00-11.30)
[2022-10-10 17:27] LABS: Albumin, Blood 2.6 g/dL (3.4-5.0); Albumin/Globulin Ratio 0.8 (0.8-1.8); Bilirubin, Total 0.6 mg/dL (0.1-1.0); Bun/Creatinine Ratio 8.3 (12.0-20.0); Calcium, Blood 8.5 mg/dL (8.5-10.1); Creatinine, Blood 1.33 mg/dL (0.40-1.00); Globulin, Blood 3.4 g/dL (2.2-4.0); Potassium, Blood 3.1 mmol/L (3.5-5.5)
== END | disposition home or self-care (01) ==
LOC: LAB SHORT 14:50 → LAB 14:50
PROVIDERS: Internal Medicine Hematology & Oncology
DX: C50.919 Malignant neoplasm of unspecified site of unspecified female breast (principal)
CPT/HCPCS: 80053; 85025

== ENCOUNTER → 2022-11-03 | Outpatient (CLI) | payer MEDICARE, BC ==
[2022-11-03 16:04] LABS: Hematocrit 34.9 % (33.0-51.0); Hemoglobin 12.5 g/dL (11.5-16.0); Mean Corpuscular HGB 32.8 pg (26.0-34.0); Mean Corpuscular HGB Conc 35.8 g/dL (31.5-36.5); Mean Corpuscular Volume 92 fL (80-100); Mean Platelet Volume 10.2 fL (9.1-12.4); NRBC ABSOLUTE 0.03 K/mm3 (0.00-0.02); Platelet Count 297 K/mm3 (150-400); RDW Coefficient Variation 16.7 % (11.7-14.2); RDW Standard Deviation 52.5 fL (35.1-46.3); Red Blood Cell Count 3.81 M/mm3 (3.80-5.20)
[2022-11-03 16:12] LABS: Albumin, Blood 3.1 g/dL (3.4-5.0); Albumin/Globulin Ratio 0.8 (0.8-1.8); Bilirubin, Total 0.5 mg/dL (0.1-1.0); Bun/Creatinine Ratio 8.5 (12.0-20.0); Calcium, Blood 8.4 mg/dL (8.5-10.1); Creatinine, Blood 0.94 mg/dL (0.40-1.00); Globulin, Blood 3.8 g/dL (2.2-4.0); Potassium, Blood 3.3 mmol/L (3.5-5.5); Total Protein, Blood 6.9 g/dL (6.4-8.2)
[2022-11-03 16:32] LABS: BAND PERCENT MAN 5 % (0-8); BASOPHILS PERCENT MAN 0 % (0-2); EOSINOPHILS PERCENT MAN 0 % (0-6); LYMPHOCYTES ABSOLUTE MAN 1.71 K/mm3 (0.84-5.20); LYMPHOCYTES PERCENT MAN 59 % (21-46); METAMYELOCYTE ABSOLUTE MAN 0.02 K/mm3 (0.00-0.00); METAMYELOCYTE PERCENT MAN 1 % (0-0); MONOCYTES ABSOLUTE MAN 0.26 K/mm3 (0.16-1.47); MONOCYTES PERCENT MAN 9 % (4-13); NEUTROPHILS ABSOLUTE MAN 0.89 K/mm3 (1.96-9.15); SEG NEUTROPHILS PERCENT MAN 26 % (41-73); TOTAL CELLS COUNTED 100
== END ==
LOC: LAB 15:58 → LAB SHORT 15:58
PROVIDERS: Emergency Medicine
DX: C50.919 Malignant neoplasm of unspecified site of unspecified female breast (principal); R60.0 Localized edema
CPT/HCPCS: 80053; 83880; 85025

== ENCOUNTER 2022-12-01 15:57 | Emergency (ER) | payer MEDICARE, BC ==
[~2022-12-01] VITALS: Ht 172.7 cm; Wt 81.7 kg
[2022-12-01 16:25] LABS: Calcium, Ionized (POC) 1.08 mmol/L (1.10-1.46); Chloride (POC) 92 mmol/L (98-108); Creatinine (POC) 0.6 mg/dL (0.6-1.0); Glucose (ISTAT POC) 424 mg/dL (70-99); Hemoglobin (POC) 12.9 g/dL (12.0-16.0); Potassium (POC) 3.3 mmol/L (3.5-5.5); Sodium (POC) 130 mmol/L (135-148); Total CO2 (POC) 27 mmol/L (21-32)
[2022-12-01 16:29] LABS: BASOPHILS ABSOLUTE AUTO 0.01 K/mm3 (0.00-0.23); BASOPHILS PERCENT AUTO 0 % (0-2); EOSINOPHILS PERCENT AUTO 0 % (0-6); IMMATURE GRAN ABSOLUTE AUTO 0.02 K/mm3 (0.00-0.10); IMMATURE GRAN PERCENT AUTO 0 % (0-1); LYMPHOCYTES PERCENT AUTO 25 % (21-46); MONOCYTES ABSOLUTE AUTO 0.21 K/mm3 (0.16-1.47); MONOCYTES PERCENT AUTO 3 % (4-13); Mean Corpuscular HGB 33.2 pg (26.0-34.0); Mean Corpuscular HGB Conc 35.1 g/dL (31.5-36.5); Mean Corpuscular Volume 94 fL (80-100); Mean Platelet Volume 11.1 fL (9.1-12.4); NEUTROPHILS ABSOLUTE AUTO 5.69 K/mm3 (1.96-9.15); NEUTROPHILS PERCENT AUTO 72 % (41-73); Platelet Count 193 K/mm3 (150-400); RDW Coefficient Variation 15.7 % (11.7-14.2); RDW Standard Deviation 54.8 fL (35.1-46.3); Red Blood Cell Count 3.92 M/mm3 (3.80-5.20); White Blood Cell Count 7.93 K/mm3 (4.00-11.30)
[2022-12-01 16:30] LABS: Source, Urine Straight Cath
[2022-12-01 16:32] LABS: Appearance, Urine Hazy (Clear); Bilirubin, Urine Neg (Neg); Blood, Urine 4+ (Neg); Color, Urine Amber (P-Yellow); Glucose Qualitative, Urine 4+ (Neg); Ketones, Urine 3+ (Neg); Leukocyte Esterase, Urine 3+ (Neg); Nitrite, Urine Neg (Neg); Protein, Urine 2+ (Neg); Urobilinogen, Urine NORM (Normal)
[2022-12-01 16:47] LABS: International Normalized Ratio 0.98; Prothrombin Time Results 10.3 Sec (9.7-11.5)
[2022-12-01 16:48] LABS: Bacteria Many /hpf; Mucus Light (0-Heavy); White Blood Cells, Urine 25-50 /hpf (0-5); Yeast/Fungi Urine Many /hpf
[2022-12-01 16:49] LABS: Squamous Epithelial Cells Few /hpf (Few)
[2022-12-01 16:54] LABS: Alanine Aminotransfer (ALT/SGP 25 U/L (12-78); Albumin, Blood 3.1 g/dL (3.4-5.0); Albumin/Globulin Ratio 0.9 (0.8-1.8); Alk Phos 95 U/L (50-136); Anion Gap 12 mmol/L (6-16); Aspartate Aminotrans (AST/SGOT 18 U/L (12-37); Bilirubin, Total 1.5 mg/dL (0.1-1.0); Blood Urea Nitrogen 29 mg/dL (8-24); CO2, Blood 27 mmol/L (21-32); CPK Creatine Kinase 27 U/L (26-193); Calcium, Blood 9.2 mg/dL (8.5-10.1); Chloride, Blood 93 mmol/L (98-108); Creatinine, Blood 0.51 mg/dL (0.40-1.00); Ethanol (Alcohol), Blood, Med <3 mg/dL; Globulin, Blood 3.3 g/dL (2.2-4.0); Glomerular Filtration Rate 102 (60-); Glucose, Blood 420 mg/dL (70-99); Potassium, Blood 3.3 mmol/L (3.5-5.5); Sodium, Blood 132 mmol/L (136-145); Total Protein, Blood 6.4 g/dL (6.4-8.2)
[2022-12-01 16:57] LABS: U Amphetamine Screen Not Detected; U Barbituate Screen Not Detected; U Benzodiazapine Screen Not Detected; U Buprenorphine Screen Not Detected; U Cannabinoids Screen Not Detected; U Cocaine Screen Not Detected; U Methadone Screen Not Detected; U Methamphetamine Screen Not Detected; U Opiates Screen Not Detected; U Oxycodone Screen Not Detected; U Phencyclidine Screen Not Detected; U Propoxyphene Screen Not Detected
[2022-12-01 17:12] LABS: PCO2 Venous 34.1 mmHg (38-42); pH Blood Venous 7.52 (7.34-7.37)
[2022-12-01] MEDS ORDERED: INSULIN AS100 UNIT/8 SC (18:02)
[2022-12-01] MEDS ORDERED: METFORMIN HCL500 M3 PO (18:02)
[2022-12-01] MEDS ORDERED: LOMOTIL 2.5-0.1 EACH PO (18:02)
[2022-12-01] MEDS ORDERED: BASAGLAR K100 UNIT/8 SC (18:02)
[2022-12-01] MEDS ORDERED: [UNRECOGNIZED DRUG - SUPPLY] (18:02)
[2022-12-01] MEDS ORDERED: OMEPRAZOL RX 20MG CA (18:03)
[2022-12-01] MEDS ORDERED: PROM12.5S PR (18:03)
[2022-12-01] MEDS ORDERED: TRULICITY0.75 MG/01 SC (18:04)
[2022-12-01] MEDS ORDERED: [UNRECOGNIZED DRUG - OTHER] (18:04)
[2022-12-01] MEDS ORDERED: OXYB5 PO (18:04)
[2022-12-01] MEDS ORDERED: DEXA.5 (18:04)
[2022-12-01] MEDS ORDERED: FUROSEMIDE20 MG PO (18:04)
[2022-12-01] MEDS ORDERED: CEPH500 PO (20:37)
[2022-12-01 21:00] VITALS: BP 103/51
== END 2022-12-01 21:40 | disposition home or self-care (01) ==
LOC: ER 15:57
PROVIDERS: Emergency Medicine
DX: T67.01XA Heatstroke and sunstroke, initial encounter (principal); E11.65 Type 2 diabetes mellitus with hyperglycemia; X30.XXXA Exposure to excessive natural heat, initial encounter; G47.30 Sleep apnea, unspecified; Z88.1 Allergy status to other antibiotic agents; Z88.8 Allergy status to other drugs, medicaments and biological substances; Z79.4 Long term (current) use of insulin
CPT/HCPCS: 36415; 70450; 80047; 80053; 81001; 82010; 82140; 82550; 82803; 82947; 83605; 84145; 84484; 85014; 85025; 85610; 85730; 87040; 87086; 87106; 93005; 93010; 96361; 96374; 99285-25; G0480; J0696; J1815; J7030

== ENCOUNTER 2022-12-08 01:49 | Emergency (ER) | payer MEDICARE, BC ==
[~2022-12-08] VITALS: Ht 149.9 cm; Wt 59.9 kg
[~2022-12-08 01:49] MED LIST changes: +BASAGLAR K100 UNIT/8 SC; +CEPH500 PO; +DEXA.5 PO; +FUROSEMIDE20 MG PO; +INSULIN AS100 UNIT/8 SC; +LOMOTIL 2.5-0.1 EACH PO; +METFORMIN HCL500 M3 PO; +OMEPRAZOL RX 20MG CA; +OXYB5 PO; +PROM12.5S PR; +TRULICITY0.75 MG/01 SC; +[UNRECOGNIZED DRUG - OTHER]; +[UNRECOGNIZED DRUG - SUPPLY]
[2022-12-08 01:52] VITALS: BP 97/79
[2022-12-08 04:23] LABS: Albumin, Blood 3.3 g/dL (3.4-5.0); Albumin/Globulin Ratio 0.9 (0.8-1.8); Bun/Creatinine Ratio 42.3 (12.0-20.0); Creatinine, Blood 0.69 mg/dL (0.40-1.00); Globulin, Blood 3.8 g/dL (2.2-4.0); Potassium, Blood 3.8 mmol/L (3.5-5.5); Total Protein, Blood 7.1 g/dL (6.4-8.2)
[2022-12-08 05:52] LABS: BASOPHILS ABSOLUTE AUTO 0.05 K/mm3 (0.00-0.23); BASOPHILS PERCENT AUTO 1 % (0-2); EOSINOPHILS ABSOLUTE AUTO 0.02 K/mm3 (0.00-0.68); EOSINOPHILS PERCENT AUTO 0 % (0-6); Hematocrit 36.5 % (33.0-51.0); Hemoglobin 12.9 g/dL (11.5-16.0); IMMATURE GRAN ABSOLUTE AUTO 0.05 K/mm3 (0.00-0.10); IMMATURE GRAN PERCENT AUTO 1 % (0-1); LYMPHOCYTES ABSOLUTE AUTO 1.39 K/mm3 (0.84-5.20); LYMPHOCYTES PERCENT AUTO 13 % (21-46); MONOCYTES ABSOLUTE AUTO 0.23 K/mm3 (0.16-1.47); MONOCYTES PERCENT AUTO 2 % (4-13); Mean Corpuscular HGB 33.3 pg (26.0-34.0); Mean Corpuscular HGB Conc 35.3 g/dL (31.5-36.5); Mean Corpuscular Volume 94 fL (80-100); Mean Platelet Volume 10.7 fL (9.1-12.4); NEUTROPHILS ABSOLUTE AUTO 9.33 K/mm3 (1.96-9.15); NEUTROPHILS PERCENT AUTO 84 % (41-73); Platelet Count 167 K/mm3 (150-400); RDW Coefficient Variation 14.6 % (11.7-14.2); RDW Standard Deviation 51.2 fL (35.1-46.3); Red Blood Cell Count 3.87 M/mm3 (3.80-5.20); White Blood Cell Count 11.07 K/mm3 (4.00-11.30)
== END 2022-12-08 07:15 | disposition home or self-care (01) ==
LOC: ER 01:49
PROVIDERS: Emergency Medicine
DX: E11.65 Type 2 diabetes mellitus with hyperglycemia (principal); E86.0 Dehydration; R53.1 Weakness; H92.02 Otalgia, left ear; M79.89 Other specified soft tissue disorders; J44.9 Chronic obstructive pulmonary disease, unspecified; I10 Essential (primary) hypertension; K21.9 Gastro-esophageal reflux disease without esophagitis; Z85.3 Personal history of malignant neoplasm of breast; Z88.1 Allergy status to other antibiotic agents; Z88.8 Allergy status to other drugs, medicaments and biological substances; Z79.4 Long term (current) use of insulin; Z79.84 Long term (current) use of oral hypoglycemic drugs; Z79.899 Other long term (current) drug therapy
CPT/HCPCS: 36415; 80053; 82140; 82947; 83880; 85025; 96361; 96374; 99285-25; J2405; J7030

== ENCOUNTER 2022-12-09 16:16 | Inpatient (IN) | payer MEDICARE, BC ==
[~2022-12-09] VITALS: Ht 160 cm; Wt 71.9 kg
[2022-12-09 18:16] LABS: BASOPHILS ABSOLUTE AUTO 0.02 K/mm3 (0.00-0.23); BASOPHILS PERCENT AUTO 0 % (0-2); EOSINOPHILS ABSOLUTE AUTO 0.02 K/mm3 (0.00-0.68); EOSINOPHILS PERCENT AUTO 0 % (0-6); Hematocrit 34.8 % (33.0-51.0); Hemoglobin 11.9 g/dL (11.5-16.0); IMMATURE GRAN ABSOLUTE AUTO 0.02 K/mm3 (0.00-0.10); IMMATURE GRAN PERCENT AUTO 0 % (0-1); LYMPHOCYTES PERCENT AUTO 23 % (21-46); MONOCYTES ABSOLUTE AUTO 0.21 K/mm3 (0.16-1.47); MONOCYTES PERCENT AUTO 4 % (4-13); Mean Corpuscular HGB Conc 34.2 g/dL (31.5-36.5); Mean Corpuscular Volume 96 fL (80-100); NEUTROPHILS ABSOLUTE AUTO 4.17 K/mm3 (1.96-9.15); NEUTROPHILS PERCENT AUTO 73 % (41-73); Platelet Count 154 K/mm3 (150-400); RDW Coefficient Variation 14.6 % (11.7-14.2); RDW Standard Deviation 51.7 fL (35.1-46.3); Red Blood Cell Count 3.61 M/mm3 (3.80-5.20); White Blood Cell Count 5.74 K/mm3 (4.00-11.30)
[2022-12-09 18:33] LABS: Albumin, Blood 2.6 g/dL (3.4-5.0); Albumin/Globulin Ratio 0.9 (0.8-1.8); Bun/Creatinine Ratio 60.2 (12.0-20.0); Calcium, Blood 8.9 mg/dL (8.5-10.1); Creatinine, Blood 0.52 mg/dL (0.40-1.00); Potassium, Blood 2.8 mmol/L (3.5-5.5); Total Protein, Blood 5.6 g/dL (6.4-8.2)
[2022-12-10] VITALS (84 sets, daily range): BP systolic 85–140; BP diastolic 46–88
[2022-12-10] MEDS ORDERED: CEPH500 PO (02:15)
[2022-12-10] MEDS ORDERED: POTA8 PO (02:20)
[2022-12-10] MEDS ORDERED: LOPE2C PO (02:21)
[2022-12-10 03:36] LABS: Source, Urine Voided
[2022-12-10 03:38] LABS: Bilirubin, Urine Neg (Neg); Blood, Urine 2+ (Neg); Glucose Qualitative, Urine 2+ (Neg); Ketones, Urine 1+ (Neg); Leukocyte Esterase, Urine 3+ (Neg); Nitrite, Urine Neg (Neg); Protein, Urine 2+ (Neg); Specific Gravity, Urine 1.015 (1.003-1.022); Urobilinogen, Urine NORM (Normal)
[2022-12-10 03:41] LABS: Appearance, Urine Cloudy (Clear); Color, Urine Amber (P-Yellow)
[2022-12-10 03:44] LABS: Bacteria Few /hpf; Squamous Epithelial Cells Few /hpf (Few); Yeast/Fungi Urine Many /hpf
[2022-12-10 03:52] LABS: BASOPHILS ABSOLUTE AUTO 0.03 K/mm3 (0.00-0.23); BASOPHILS PERCENT AUTO 1 % (0-2); EOSINOPHILS ABSOLUTE AUTO 0.03 K/mm3 (0.00-0.68); EOSINOPHILS PERCENT AUTO 1 % (0-6); Hematocrit 30.6 % (33.0-51.0); Hemoglobin 10.5 g/dL (11.5-16.0); IMMATURE GRAN ABSOLUTE AUTO 0.01 K/mm3 (0.00-0.10); IMMATURE GRAN PERCENT AUTO 0 % (0-1); LYMPHOCYTES ABSOLUTE AUTO 2.01 K/mm3 (0.84-5.20); LYMPHOCYTES PERCENT AUTO 37 % (21-46); MONOCYTES ABSOLUTE AUTO 0.23 K/mm3 (0.16-1.47); MONOCYTES PERCENT AUTO 4 % (4-13); Mean Corpuscular HGB 33.4 pg (26.0-34.0); Mean Corpuscular HGB Conc 34.3 g/dL (31.5-36.5); Mean Corpuscular Volume 98 fL (80-100); Mean Platelet Volume 11.1 fL (9.1-12.4); NEUTROPHILS ABSOLUTE AUTO 3.14 K/mm3 (1.96-9.15); NEUTROPHILS PERCENT AUTO 58 % (41-73); Platelet Count 147 K/mm3 (150-400); RDW Coefficient Variation 14.6 % (11.7-14.2); Red Blood Cell Count 3.14 M/mm3 (3.80-5.20); White Blood Cell Count 5.45 K/mm3 (4.00-11.30)
[2022-12-10 04:19] LABS: Albumin, Blood 2.2 g/dL (3.4-5.0); Albumin/Globulin Ratio 0.8 (0.8-1.8); Bilirubin, Total 0.9 mg/dL (0.1-1.0); Bun/Creatinine Ratio 45.3 (12.0-20.0); Calcium, Blood 8.1 mg/dL (8.5-10.1); Creatinine, Blood 0.46 mg/dL (0.40-1.00); Globulin, Blood 2.9 g/dL (2.2-4.0); Magnesium, Blood 1.8 mg/dL (1.6-2.4); Potassium, Blood 3.1 mmol/L (3.5-5.5); Total Protein, Blood 5.1 g/dL (6.4-8.2)
--- NOTE | 2022-12-10 07:15 | NUR ---
CARE ASSUMPTION DURING BEDSIDE SHIFT REPORT WITH LYNN Lynn RN THE PT IS LYING IN BED ON 2L NC. PT AROUSES TO VOICE AND IS COMMUNICATING APPROPRIATELY W STAFF. PT'S MONITOR SHOWING SINUS ARRYTHMIA 60'S-70'S. BP WNL ON LEVOPHED 2 MCG/MIN. PT DENYING ANY PAIN OR NAUSEA AT THIS TIME.
--- NOTE | 2022-12-10 07:37 | NUR ---
ARRIVAL TO ICU PT ARRIVED TO ICU AT 0145 VIA ED BED AND TRANSFERED OVER TO ICU BED VIA SLIDE SHEET. SHE IS BEING ADMITTED TO ICU FOR HYPOTENSION NEEDING LEVOPHED. SHE IS A/O X4 AND ABLE TO MAKE HER NEEDS KNOWN; SHE IS PROFOUNDLY WEAK, HAVING TROUBLE LIFTING HER HEAD OFF THE PILLOW OR LIFING HER EXTREMITIES. SPO2 >98% ON RA; WHILE SLEEPING PLACED ON 2L NC FOR ALVARADO, SHE USES A CPAP AT HOME AND ONE OF HER DAUGHTERS SAID THEY WOULD BRING IT IN EITHER TODAY OR TOMORROW. AFEBRILE. HR 60-80, SINUS ARRHYTHMIA NOTED. SBP 90-110; LEVOPHED INFUSING AT 5MCG/MIN UPON ARRIVAL. PURWICK IN PLACE AND EVENTUALLY PT WAS ABLE TO URINATE 80ML THAT WAS SENT FOR A UA. REDDENED YEAST AREAS NOTED UNDER LT PANNUS; REDNESS NOTED TO COCCYX AND HEELS TOO; PICTURES TAKEN AND PLACED IN CHART. PT MEDIPORT WAS ACCESSED IN ED, LEVOPHED AND NS W/ 20 KCL INFUSING THROUGH MEDIPORT, LABS ALSO DRAWN FROM THIS SITE. SEE ADMISSION ASSESSMENT FOR FULL ASSESSMENT. PT DAUGHTERS AT BEDSIDE AND VERY FRIENDLY WITH STAFF. BOTH TEND TO TALK OVER THE PT WHICH CAN MAKE IT CHALLENGING FOR HER TO ANSWER QUESTIONS. THE PT IS ADAMANT THAT THE SISTER THAT CURRENTLY LIVES WITH HER NOT RECIEVE ANY INFORMATION. A CODE WORD HAS BEEN SET UP WITH THE PT AND HER DAUGHTERS "". THE PT IS VERY UPSET THAT HER SISTER HAS NOT BEEN ABLE TO MEET THE PT ADL'S REGARDING BATHING AND MEDICATION MANAGMENT. BOTH DAUGHTER ARE AWEAR OF THE SITUATION.
--- NOTE | 2022-12-10 07:46 | NUR ---
END OF SHIFT SUMMARY NO ACUTE EVENTS SINCE LAST NOTE. THE PT DAUGHTERS LEFT THE UNIT AROUND 0430 AND THE PT WAS ABLE TO GET A FEW HOURS OF SLEEP. SHE CONT TO BE A/O X4. SPO2 >98% ON 2L WHILE SLEEPING. HR 60-70'S; BP IMPROVING AND LEVOPHED TITRATED DOWN TO 2MCG/MIN. NO BM SINCE ADMIT. NO URINE OUTPUT SINCE SINGLE VOID RIGHT AFTER SHE ARRIVED TO ICU. NS WITH 20 OF KCL CONT TO INFUSE AT 150ML/HR. REPORT GIVEN TO CRYSTAL STALLINGS.
--- NOTE | 2022-12-10 14:00 | NUR ---
UPDATE PROVIDER CONTACTED W CONCERNS THAT THE PT'S LEFT LOWER LEG IS MUCH MORE SWOLLEN THEN HER RIGHT LEG. PROVIDER GIVING ORDERS FOR VENOUS DUPLEX.
[2022-12-10 17:01] LABS: Bun/Creatinine Ratio 45.9 (12.0-20.0); Calcium, Blood 7.6 mg/dL (8.5-10.1); Creatinine, Blood 0.31 mg/dL (0.40-1.00); Potassium, Blood 3.5 mmol/L (3.5-5.5)
--- NOTE | 2022-12-10 18:02 | NUR ---
DAY SHIFT SUMMARY PT HAS REMAINED ALERT AND ORIENTED THIS SHIFT COMMUNICATING APPROPRIATELY W STAFF. PT WAS ABLE TO BE TITRATED OFF OF PRESSORS SHORTLY AFTER LUNCH AND HAS REMAINED OFF OF THEM ALL SHIFT W SOFT BP BUT STABLE MAPS >65. PT HAS MAINTAINED SPO2 >94% ON RM AIR, PT'S DAUGHTER BROUGHT IN HER CPAP AND IT WILL BE SET UP BY RT FOR HER TO USE TONIGHT. MONITOR HAS SHOWN A SINUS ARRYTHMIA W PAC'S 60'S-70'S. PT AFEBRILE THIS SHIFT. PT WAS UNABLE TO VOID THIS AM SO BLADDER SCAN PERFORMED SHOWING >400ML URINE SO STRAIGHT CATH WAS INSERTED DRAINING 550ML DARK ANTHONY URINE. BLADDER SCAN AT 1700 SHOWED >200ML. PT HAS AGREED TO ATTEMPT TO VOID AFTER DINNER BUT DID NOT WANT TO GO AT THAT TIME. PT HAD A VERY LARGE LOOSE BM THIS SHIFT. PT HAS VERY INFLAMED FRAGILE SKIN AROUND AMRIK-AREA AND COCCYX. MEPILEX DRESSING WAS PLACED ON COCCYX AND BARRIER CREAM WAS APPLIED TO PANNUS AND AMRIK-AREA. PT'S LEFT LEG IS MUCH MORE SWOLLEN THEN HER RIGHT LEG SO THE PROVIDER WAS CONTACTED AND A VENOUS DUPLEX STUDY WAS ORDERED. VENOUS DUPLEX PRELIMINARY RESULTS SHOW BILATERAL DVT'S SO PROVIDER CONTACTED AND LOVENOX ORDERED. PT AND FAMILY UPDATED ON HER CONDITION. PT HAS EATEN SMALL PORTIONS OF HER MEALS BUT HAS HAD GOOD PO INTAKE OF FLUIDS. PT'S SKIN TURGOR REMAINS POOR. PT RECIEVING KCL AT 150ML/HR THROUGH ACCESSED MEDIPORT. PT'S DAUGHTER CURRENTLY AT BEDSIDE. PT DENYING ANY FURTHER NEEDS AT SI TIME. WILL REPORT TO ONCOMING RN.
--- NOTE | 2022-12-10 20:46 | NUR ---
PATIENT RESTING QUIETLY IN BED WITH DAUGHTER AT BEDSIDE. GENERALIZED WEAKNESS. LEVOPHED REMAINS OFF AT THIS TIME. PUREWICK IN PLACE ABLE TO VOID SMALL AMT DARK ANTHONY URINE. GENERALIZED EDEMA MORE TO LEFT LOWER EXTREMITY. BOTH LEGS PAINFUL TO SLIGHT MOVEMENT
[2022-12-11] VITALS (26 sets, daily range): BP systolic 93–126; BP diastolic 49–79
--- NOTE | 2022-12-11 05:42 | NUR ---
PATIENT SLEEPING OFF AND ON T/O NIGHT WITH HOME CPAP IN PLACE. LEVOPHED REMAINS OFF. VOIDING SMALL AMT OF ANTHONY URINE PUREWICK IN PLACE. PATIENT ABLE TO ASSIST WITH REPOSITIONING, CONTINUES TO HAVE LEG PAIN WITH MOVEMENT. PATIENT AND FAMILY AWARE OF IGNITION RISK. NO IGNITION SOURCE SEEN IN ROOM.
--- NOTE | 2022-12-11 06:19 | NUR ---
DOCTOR BURDEN IN TO SEE PATIENT. ORDER OBTAINED FOR TRANSFER TO PCU STATUS, AND AM LABS
[2022-12-11 08:33] LABS: Albumin, Blood 1.8 g/dL (3.4-5.0); Anion Gap 5 mmol/L (6-16); Blood Urea Nitrogen 8 mg/dL (8-24); Bun/Creatinine Ratio 27.7 (12.0-20.0); CO2, Blood 28 mmol/L (21-32); Calcium, Blood 7.7 mg/dL (8.5-10.1); Chloride, Blood 114 mmol/L (98-108); Creatinine, Blood 0.29 mg/dL (0.40-1.00); Glomerular Filtration Rate 116 (60-); Glucose, Blood 152 mg/dL (70-99); Magnesium, Blood 1.5 mg/dL (1.6-2.4); Potassium, Blood 3.5 mmol/L (3.5-5.5); Sodium, Blood 147 mmol/L (136-145)
--- NOTE | 2022-12-11 13:59 | NUR ---
CARE NOTE PT DAUGHTER AT BEDSIDE ASSISTING HER WITH HER LUNCH MEAL. PT OFFERED BEDBATH AND SHE DECLINED STATING THAT SHE HAD ONE YESTERDAY AND THAT "I JUST WANT TO STAY WARM." WILL CONTINUET TO MONITOR. CALL LIGHT IN REACH.
--- NOTE | 2022-12-11 15:51 | NUR ---
"Spiritual Care Visit | Pt. Request Pt. is awake in bed when she wecomes my visit. Pts. daughter is present as is Tiarra her nurse. Pt. recognized this criminal psychologist from the local jain community. Facilitated a life review and established rapport. Pt. verbalized that she understands that her condition is terminal, but also voiced her desire to be baptized and Pt. requested I let her friend Edna know. Pt. displayed evidence of a strong bradly in spite of her seerious condition. Prayed with Pt. Pt. verbalized gratitude for the spiritual care visit."
--- NOTE | 2022-12-11 16:04 | NUR ---
SHIFT SUMMARY PT IS ALERT AND ORIENTED X 4, SHE IS BEDREST STATUS DUE TO BILAT DVT'S. VSS, SPO2 MAINTAINED >95% VIA RA, PT DENIES FEELINGS OF CHEST PAIN/PRESSURE WELL NAUSEA/VOMITTING, SHE DENIES FEELING SOB, CPAP AT BEDSIDE FOR NOC USE. LEFT FOREARM NOTED TO BE SWOLLEN, DR. DAVE MADE AWARE, ARM IS ELEVATED ON PILLOWS TO REDUCE SWELLING. Q2 REPOSITIONING IMPLIMENTED TO KEEP OFF PRESSURE POINTS. MEDIPORT IS INFUSING PER EMAR ORDERS. PW DEVICE IS IN PLACE AND PT HAS HAD DARK YELLOW OUTPUT. HER DAUGHTER HAS BEEN AT BEDSIDE T/O SHIFT. REPORT HAS BEEN GIVEN TO BAILEY STALLINGS TO ASSUME CARE. CALL LIGHT IS W/IN REACH.
--- NOTE | 2022-12-11 19:04 | NUR ---
END OF SHIFT NOTE ASSUMED CARE AT 1600. PATIENT ALERT AND ORIENTED. RESTING IN BED. PUREWICK AND ATTENDS IN PLACE. TOLERATING ADA DIET. CHEM BGS COVERED ACHS. BEDREST WITH Q2 HR TURNS. DAUGHTER ATTENTIVE AT BEDSIDE. IV FLUID WITH POTASSIUM RUNNING, LEFT ARM ELEVATED ON PILLOWS FOR MODERATE EDEMA.
[2022-12-12 04:05] VITALS: BP 119/59
[2022-12-12 04:24] LABS: BASOPHILS ABSOLUTE AUTO 0.02 K/mm3 (0.00-0.23); BASOPHILS PERCENT AUTO 1 % (0-2); EOSINOPHILS ABSOLUTE AUTO 0.01 K/mm3 (0.00-0.68); EOSINOPHILS PERCENT AUTO 0 % (0-6); Hematocrit 26.5 % (33.0-51.0); IMMATURE GRAN ABSOLUTE AUTO 0.02 K/mm3 (0.00-0.10); IMMATURE GRAN PERCENT AUTO 1 % (0-1); LYMPHOCYTES PERCENT AUTO 56 % (21-46); MONOCYTES ABSOLUTE AUTO 0.23 K/mm3 (0.16-1.47); MONOCYTES PERCENT AUTO 9 % (4-13); Mean Corpuscular HGB 33.8 pg (26.0-34.0); Mean Corpuscular Volume 100 fL (80-100); Mean Platelet Volume 10.1 fL (9.1-12.4); NEUTROPHILS ABSOLUTE AUTO 0.91 K/mm3 (1.96-9.15); NEUTROPHILS PERCENT AUTO 34 % (41-73); Platelet Count 178 K/mm3 (150-400); RDW Coefficient Variation 14.8 % (11.7-14.2); RDW Standard Deviation 54.6 fL (35.1-46.3); Red Blood Cell Count 2.66 M/mm3 (3.80-5.20); White Blood Cell Count 2.69 K/mm3 (4.00-11.30)
--- NOTE | 2022-12-12 04:46 | NUR ---
SHIFT SUMMARY A/0x4 AND COOPERATIVE WITH CARE . ANSWERS QUESTIONS APPROPRIATELY AND ABLE TO MAKE HER NEEDS KNOWN. NO ACUTE EVENTS OVERNIGHT FOR PT WAS ABLE TO VISIT WITH FAMILY AND SLEEP T/O MOST OF THE SHIFT. CARDIAC, REMAINS IN SR 60-70 S WITH NO REPORTS OF CP OR PRESSURE T/O THE NIGHT. SBP HAS BEEN STABLE RANGING 100-120 S. RESPIRATORY, MAINTAINS SPO2 >95% ON RA WITH NO REPORTS OF SOB. ADHERES TO CPAP WHEN SLEEPING. LS CLEAR, BUT DIM IN THE BASES. GI/, PT HAS HAD SEVERAL GREEN/LIQUID BM S THIS SHIFT. PT AND FAMILY REPORT THIS HAS BEEN A TDP DISPLAYS ANALYST ISSUE SINCE STARTING CHEMOTHERAPY . PRN IMODIUM GIVEN PER EMAR. PURWICK IN PLACE DRAINING ANTHONY COLORED URINE TO SUCTION. PT REPORTS FEELING WEAK, BUT BETTER THAN THE LAST COUPLE OF DAYS . PT SCHEDULED TO MEET WITH PT/OT TOMORROW AM FOR THERAPY. SKIN AROUND HER COCCYX IS EXTREME EXCORIATED DUE TO FREQUENT STOOL INCONTINENCE. FREQUENT CHANGING WELL USE OF BARRIER CREAM, POWDERS, AND MEPILEX USED TO HELP PREVENT ANY MORE SKIN BREAKDOWN. HEEL PROTECTORS CHANGED THIS SHIFT WELL. Q2 HR REPOSITIONING ORDERED. FLUIDS INFUSING PER EMAR. ASSESSED PT FOR RISKS OF ANY IGNITION SOURCES WELL BEHAVIORS FOR INCREASED RISKS OF FIRE DANGER. PT EDUCATED ON COMMON SOURCES OF IGNITION WELL NEED TO KEEP A SAFE ENVIRONMENT. PT VOICED UNDERSTANDING. NEW ORDERS AT THIS TIME, WILL REPORT TO ONCOMING RN. ANGELICA DOSS OF THIS NOTE.
[2022-12-12 04:47] LABS: Albumin, Blood 1.9 g/dL (3.4-5.0); Albumin/Globulin Ratio 0.7 (0.8-1.8); Bilirubin, Total 0.2 mg/dL (0.1-1.0); Bun/Creatinine Ratio 26.3 (12.0-20.0); Calcium, Blood 7.6 mg/dL (8.5-10.1); Creatinine, Blood 0.23 mg/dL (0.40-1.00); Globulin, Blood 2.7 g/dL (2.2-4.0); Magnesium, Blood 1.6 mg/dL (1.6-2.4); Potassium, Blood 3.9 mmol/L (3.5-5.5); Total Protein, Blood 4.6 g/dL (6.4-8.2)
--- NOTE | 2022-12-12 04:50 | NUR ---
UPDATE LABS THIS MORNING SHOWED A LOW PHOSPHORUS OF 1.0mg/dL. DR. MICHELLE MADE AWARE. ELECTROLYTE REPLACEMENT INITATED PER DR. MICHELLE ORDERS. SEE EMAR FOR MORE DETAILS
[2022-12-12 08:00] VITALS: BP 119/61
--- NOTE | 2022-12-12 09:00 | NUR ---
ASSUMED CARE OF PT AT 0700 THIS AM. PT AND DTR EDUCATED ABOUT FIRE RISKS AND DENY ANY SOURCES OF IGNITION. PT/DTR ABLE TO USE CALL LIGHT FOR NEEDS, WILL CONTINUE TO MONITOR AND INTERVENE REQUIRED.
[2022-12-12 11:12] VITALS: BP 100/53
--- NOTE | 2022-12-12 14:55 | NUR ---
SPiritual Care Visit. Pt. is resting but responds when I enter the room. This inventory audit clerk sought to clarify the Pts. stated wishes to be baptized by her [employer] Teacher in the hospital. The Pt. requested I inform him with that request. A text was sent to her rasper machine operator and was received.
[2022-12-12 16:51] VITALS: BP 110/63
--- NOTE | 2022-12-12 18:21 | NUR ---
NO ACUTE CHANGES T/O THE SHIFT. PT HAS BEEN RESTING COMFORTABLY, SLEEPING ON AND OFF T/O THE DAY. DTR AT BEDSIDE MOST OF THE DAY. SEE DOCUMENTED VS AND ASSESSMENT. PT HAS HAD 2 STOOLS THIS SHIFT AND GOOD URINE OUTPUT. PT/OT AND SPIRITUAL CARE IN TO SEE PT. PT IS ABLE TO USE CALL LIGHT FOR NEEDS, CALL LIGHT IN REACH, WILL CONTINUE TO MONITOR AND GIVE REPORT TO NOC SHIFT RN.
[2022-12-12 19:26] VITALS: BP 90/65
[2022-12-13] VITALS (7 sets, daily range): BP systolic 90–118; BP diastolic 52–66
[2022-12-13 04:18] LABS: Hematocrit 24.9 % (33.0-51.0); Hemoglobin 8.6 g/dL (11.5-16.0); Mean Corpuscular HGB 33.5 pg (26.0-34.0); Mean Corpuscular HGB Conc 34.5 g/dL (31.5-36.5); Mean Corpuscular Volume 97 fL (80-100); Mean Platelet Volume 10.1 fL (9.1-12.4); NRBC ABSOLUTE 0.02 K/mm3 (0.00-0.02); NRBC Auto 0.7 /100 WBC (0.0-0.2); Platelet Count 212 K/mm3 (150-400); RDW Coefficient Variation 14.9 % (11.7-14.2); RDW Standard Deviation 52.7 fL (35.1-46.3); Red Blood Cell Count 2.57 M/mm3 (3.80-5.20); White Blood Cell Count 3.04 K/mm3 (4.00-11.30)
[2022-12-13 04:33] LABS: Albumin, Blood 1.7 g/dL (3.4-5.0); Anion Gap 6 mmol/L (6-16); Blood Urea Nitrogen 4 mg/dL (8-24); Bun/Creatinine Ratio 16.3 (12.0-20.0); CO2, Blood 26 mmol/L (21-32); Calcium, Blood 7.5 mg/dL (8.5-10.1); Chloride, Blood 110 mmol/L (98-108); Creatinine, Blood 0.25 mg/dL (0.40-1.00); Glomerular Filtration Rate 121 (60-); Glucose, Blood 162 mg/dL (70-99); Magnesium, Blood 1.6 mg/dL (1.6-2.4); Phosphorus, Blood 1.1 mg/dL (2.5-4.9); Potassium, Blood 3.3 mmol/L (3.5-5.5); Sodium, Blood 142 mmol/L (136-145)
[2022-12-13 05:02] LABS: BAND PERCENT MAN 6 % (0-8); BASOPHILS ABSOLUTE MAN 0.03 K/mm3 (0.00-0.23); BASOPHILS PERCENT MAN 1 % (0-2); EOSINOPHILS PERCENT MAN 0 % (0-6); LYMPHOCYTES ABSOLUTE MAN 1.76 K/mm3 (0.84-5.20); LYMPHOCYTES PERCENT MAN 58 % (21-46); MONOCYTES ABSOLUTE MAN 0.45 K/mm3 (0.16-1.47); MONOCYTES PERCENT MAN 15 % (4-13); MYELOCYTE ABSOLUTE MAN 0.03 K/mm3 (0.00-0.00); MYELOCYTE PERCENT MAN 1 % (0-0); NEUTROPHILS ABSOLUTE MAN 0.76 K/mm3 (1.96-9.15); SEG NEUTROPHILS PERCENT MAN 19 % (41-73); TOTAL CELLS COUNTED 100
--- NOTE | 2022-12-13 05:17 | NUR ---
SHIFT SUMMARY A/0x4 AND COOPERATIVE WITH CARE . ANSWERS QUESTIONS APPROPRIATELY AND ABLE TO MAKE HER NEEDS KNOWN. NO ACUTE EVENTS OVERNIGHT FOR PT WAS ABLE TO VISIT WITH FAMILY AND SLEEP T/O MOST OF THE SHIFT. CARDIAC, REMAINS IN SR 60-80 S WITH NO REPORTS OF CP OR PRESSURE T/O THE NIGHT. SBP HAS BEEN A LITTLE SOFT RANGING 90-100 S, BUT HAS REMAINED STABLE. RESPIRATORY, MAINTAINS SPO2 >95% ON RA WITH NO REPORTS OF SOB. ADHERES TO CPAP WHEN SLEEPING. LS CLEAR, BUT DIM IN THE BASES. GI/, PT HAD TWO BM s PER DAY SHIFT REPORT. NO BM S DURING THE NIGHT. PURWICK IN PLACE DRAINING YELLOW/ANTHONY COLORED URINE TO SUCTION. PT REPORTS FEELING WEAK, BUT BETTER THAN YESTERDAY . PT MET WITH PT/OT PER DAY SHIFT REPORT FOR SOME BEDSIDE EXERCISES. SKIN AROUND HER COCCYX IS EXTREMELY EXCORIATED DUE TO FREQUENT STOOL INCONTINENCE. USE OF BARRIER CREAM, POWDERS, AND MEPILEX USED TO HELP PREVENT ANY MORE SKIN BREAKDOWN. HEEL PROTECTORS USED TO RELIEVE PRESSURE OFF OF HEELS WELL. Q2 HR REPOSITIONING ORDERED. FLUIDS INFUSING PER EMAR. ASSESSED PT FOR RISKS OF ANY IGNITION SOURCES WELL BEHAVIORS FOR INCREASED RISKS OF FIRE DANGER. PT EDUCATED ON COMMON SOURCES OF IGNITION WELL NEED TO KEEP A SAFE ENVIRONMENT. PT VOICED UNDERSTANDING. NEW ORDERS AT THIS TIME, WILL REPORT TO ONCOMING RN. ANGELICA DOSS OF THIS NOTE.
--- NOTE | 2022-12-13 09:23 | NUR ---
AM NOTE: PATIENT ALERT AND ORIENTED X4. VERY SOFT SPOKEN. PERRLA. DENIES NUMBNESS/TINGLING. OVERALL VERY WEAK. BILATERAL SUPERVISOR PIPE JOINTS STRENGTH. ON ROOM AIR SATING ABOVE 95%. WEARING HOME CPAP AT [facility]. LUNGS SOUNDING CLEAR AND DIM IN BASES. EVEN AND UNLABORED RESPIRATIONS. DENIES COUGH. TELE SHOWING SINUS RHYTHM WITH HR 70-80'S. BP ON SOFT SIDE. PPP. EDEMA NOTED THROUGHOUT WITH WORSENING EDEMA TO LEFT UPPER AND LOWER EXTREMITIES. DENIES CHEST PAIN/PRESSURE/PALPITATIONS. NS INFUSING PER EMAR. DENIES ABDOMINAL PAIN/NAUSEA. EATING SMALL AMOUNTS. NEEDING FEEDING ASSISTANCE. ABLE TO TAKE PILLS WHOLE WITH APPLESAUCE THIS AM. BOWEL TONES PRESENT. PURWICK IN PLACE/CHANGED THIS AM. URINE YELLOW/ANTHONY IN COLOR. AMRIK AREA AND PANUS FOLDS RED AND IRRIATED. CLEANED THIS AM AND CREAM/POWDER APPLIED. MEPILEX IN PLACE COVERING COCCYX. Q2 TURNS. BEDREST AT THIS TIME. PT/OT ORDERS IN PLACE. LEGS ELEVATED ON PILLOWS. ACHS BLOOD SUGARS. DR. DAVE IN THIS AM. CALL LIGHT IN REACH.
[2022-12-13 14:28] LABS: Albumin, Blood 1.8 g/dL (3.4-5.0); Anion Gap 6 mmol/L (6-16); Blood Urea Nitrogen 4 mg/dL (8-24); Bun/Creatinine Ratio 13.9 (12.0-20.0); CO2, Blood 27 mmol/L (21-32); Calcium, Blood 7.4 mg/dL (8.5-10.1); Chloride, Blood 105 mmol/L (98-108); Creatinine, Blood 0.29 mg/dL (0.40-1.00); Glomerular Filtration Rate 116 (60-); Glucose, Blood 230 mg/dL (70-99); Phosphorus, Blood 2.1 mg/dL (2.5-4.9); Potassium, Blood 3.4 mmol/L (3.5-5.5); Sodium, Blood 138 mmol/L (136-145)
--- NOTE | 2022-12-13 14:31 | NUR ---
"Spiritual Care Visit | Pt. Request | Gnosticism Pt. is awake and welcomes my visit. At the Pts. previous request this order desk caller invited her hse specialist to come and administer sabianism. Another staff member is also present. Scriptures were share, and issues of bradly and belief were considered. The hse specialist Prayed for the Pt. and annointed her with water. After some casual conversation the Pt. verbalized gratitude for the spiritual care visit."
--- NOTE | 2022-12-13 14:44 | NUR ---
TRANSFER: NO ACUTE CHANGES. VITAL SIGNS REMAIN STABLE. MEDICAL STATUS NO TELE. REMAINS ON ROOM AIR. 1/2 NS INFUSING PER EMAR. PATIENT ABLE TO EAT SMALL AMOUNT OF LUNCH. ONE DAUGHTER IN AND UPDATED BY THIS RN. PATIENT BROUGHT UP TO MEDICAL FLOOR WITH ALL PERSONAL BELONGINGS INCLUDING CPAP MACHINE. REPORTED OFF TO [facility].
--- NOTE | 2022-12-13 19:32 | NUR ---
SHIFT SUMMARY: WINSTON IS A&OX4. VSS, NO ACUTE EVENTS THIS SHIFT. DENTAL HYGENIST DISCOVERED PT TO HAVE ORAL THRUSH, HOSPITALIST CALLED AND NEW ORDER FOR [facility]STAT[facility] OBTAINED. PT IS TOLERATING PO INTAKE WELL. IV FLUIDS INFUSING INTO MEDIPORT IN LEFT CHEST WALL, DRESSING INTACT. Q2 TURNS, FAMILY AT BEDSIDE, PUREWICK IN PLACE, ATTENDS IN PLACE. SHE USES THE CALL LIGHT APPROPRIATELY. SHE IS LYING IN BED WITH THE CALL LIGHT IN REACH. REPORT GIVEN TO RESOURCING CONSULTANT RN.
--- NOTE | 2022-12-14 04:31 | NUR ---
SHIFT CLARIBEL, PT DAUGHTER HERE LAST NOC VISITING PT. PT RESTING IN BED, PT SEEMED TO BE COMFORATBLE LAS NOS AND SEEMED TO SLEEP WELL. PT REFUSING TURNS DUE TO BEING COMFORTABLE. CALL LIGHT IN REACH.
--- NOTE | 2022-12-14 04:49 | NUR ---
FIRE SAFETY REVIEWED.
--- NOTE | 2022-12-14 06:14 | NUR ---
PT RESTING IN BED, PT CONFUSED UPON AWAKING. PT NOT SURE WHERE SHE WAS AND WAS VERY SUSPECIOUS. LAB HAD ALSO BEEN IN ROOM AND AWOKE PT SHE SAID SHE WAS NOT A PT WAS JUST WAITING FOR HER CAR TO GET FIXED. PT MORE ALERT NOW BUT STILL SEMMS MORE CONFUSED NOW THAN LAST NIGHT.
[2022-12-14 06:46] LABS: Albumin, Blood 1.7 g/dL (3.4-5.0); Anion Gap 3 mmol/L (6-16); Blood Urea Nitrogen 4 mg/dL (8-24); Bun/Creatinine Ratio 16.3 (12.0-20.0); CO2, Blood 32 mmol/L (21-32); Calcium, Blood 7.3 mg/dL (8.5-10.1); Chloride, Blood 109 mmol/L (98-108); Creatinine, Blood 0.25 mg/dL (0.40-1.00); Glomerular Filtration Rate 120 (60-); Glucose, Blood 199 mg/dL (70-99); Magnesium, Blood 1.5 mg/dL (1.6-2.4); Phosphorus, Blood 2.1 mg/dL (2.5-4.9); Potassium, Blood 3.5 mmol/L (3.5-5.5); Sodium, Blood 144 mmol/L (136-145)
[2022-12-14 07:23] VITALS: BP 101/62
[2022-12-14 15:23] LABS: Albumin, Blood 1.6 g/dL (3.4-5.0); Anion Gap 7 mmol/L (6-16); Blood Urea Nitrogen 4 mg/dL (8-24); CO2, Blood 29 mmol/L (21-32); Calcium, Blood 7.1 mg/dL (8.5-10.1); Chloride, Blood 105 mmol/L (98-108); Creatinine, Blood 0.33 mg/dL (0.40-1.00); Glomerular Filtration Rate 112 (60-); Glucose, Blood 227 mg/dL (70-99); Potassium, Blood 3.8 mmol/L (3.5-5.5); Sodium, Blood 141 mmol/L (136-145)
--- NOTE | 2022-12-14 15:50 | NUR ---
SHIFT SUMMARY NO ACUTE CHANGES THIS SHIFT. PATIENT APPEARED IRRITABLE THIS AM, HOWEVER SEEMED TO IMPROVE T/O SHIFT. MINIMAL PO INTAKE. IVF PER EMAR. WORKED WITH PT & OT TODAY, SAT AT EDGE OF BED AND STOOD A COUPLE TIMES WITH 2P ASSIST. PT/OT REPORTED IMPROVEMENT SINCE PREVIOUS VISITS. DENIES PAIN. USES CALL LIGHT APPROPRIATELY, IN REACH. WILL REPORT TO ONCOMING RN AT 1900.
[2022-12-14 16:14] VITALS: BP 104/69
--- NOTE | 2022-12-14 16:31 | NUR ---
"Spiritual Care Visit | Pts. Birthday Pt. is resting but responds when I enter the room. Pt. verbalizes gratitude for the Buddhism the previous day, and this data entry clerk gives Pt. a birthday blessing as today is her birthday. Facilitated a life review until this data entry clerk got called to a Rapid Response. Pt. displayed evidence of understanding and verbalized gratitude for the spiritual care visit."
[2022-12-14 19:46] VITALS: BP 101/59
--- NOTE | 2022-12-15 04:01 | NUR ---
SHIFT SUMMARY PATIENT HAD NO ACUTE CHANGES. AXOX 4, FORGETFUL, AND BEDREST. TAKES MEDS WHOLE WITH A.S. MEDIPORT INTACT INFUSING 1/2 NS @ 50 mL/HR. CBG 208. PUREWICK IN PLACE. VSS/AFEBRILE. DENIES CHEST PAIN, SOB, AND N/V. FAMILY PRESENT IN ROOM FOR HER BIRTHDAY. FIRE SAFETY EDUCATION ROUNDING. CALL LIGHT IN REACH. BED IN LOWEST POSITION. WILL CONTINUE TO MONITOR UNTIL DAY SHIFT NURSE ASSUMES CARE.
[2022-12-15 05:14] VITALS: BP 104/62
[2022-12-15 06:13] LABS: Albumin, Blood 1.5 g/dL (3.4-5.0); Anion Gap 6 mmol/L (6-16); Blood Urea Nitrogen 3 mg/dL (8-24); CO2, Blood 30 mmol/L (21-32); Calcium, Blood 7.8 mg/dL (8.5-10.1); Chloride, Blood 108 mmol/L (98-108); Creatinine, Blood 0.33 mg/dL (0.40-1.00); Glomerular Filtration Rate 112 (60-); Glucose, Blood 180 mg/dL (70-99); Magnesium, Blood 1.7 mg/dL (1.6-2.4); Phosphorus, Blood 2.2 mg/dL (2.5-4.9); Potassium, Blood 3.4 mmol/L (3.5-5.5); Sodium, Blood 144 mmol/L (136-145)
[2022-12-15 07:50] VITALS: BP 119/63
[2022-12-15 13:32] LABS: Influenza A, PCR NEGATIVE (NEGATIVE); Influenza B, PCR NEGATIVE (NEGATIVE); Resp Syncytial Virus, PCR NEGATIVE (NEGATIVE); SARS-Cov-2 (COVID-19) PCR, MMC NEGATIVE (NEGATIVE)
[2022-12-15] MEDS ORDERED: BUME1 PO (14:48)
[2022-12-15] MEDS ORDERED: MIRT15 PO (14:49)
[2022-12-15] MEDS ORDERED: MICONAZOLE NIT130 GM TOP (14:49)
[2022-12-15] MEDS ORDERED: XARELTO20 MG PO (14:50)
[2022-12-15] MEDS ORDERED: NYSTATIN100000 U10 PO (14:50)
--- NOTE | 2022-12-15 17:20 | NUR ---
PT DISCHARGE, [facility] AT 1520 [address]. PT WHEELED TO DOOR AT 1720 BY ANASTASIA
== END 2022-12-15 17:40 | DRG 871 ==
LOC: ER 16:16 → ICUE 12-10 00:50 → MEDS 12-10 00:50 → PCU 12-10 00:50 → ICUE 12-10 01:45 → PCU 12-11 09:30 → MEDS 12-13 15:01
PROVIDERS: Emergency Medicine; Family Medicine; Internal Medicine; ADMIT Student in an Organized Health Care Education/Training Program
PROC: 3E033XZ Introduction of Vasopressor into Peripheral Vein, Percutaneous Approach (ICD-10-PCS; principal; 2022-12-12)
DX: R57.1 Hypovolemic shock (principal); E43 Unspecified severe protein-calorie malnutrition; I48.20 Chronic atrial fibrillation, unspecified; N17.9 Acute kidney failure, unspecified; I82.403 Acute embolism and thrombosis of unspecified deep veins of lower extremity, bilateral; I50.32 Chronic diastolic (congestive) heart failure; N39.0 Urinary tract infection, site not specified; Z20.822 Contact with and (suspected) exposure to COVID-19; E86.0 Dehydration; K74.60 Unspecified cirrhosis of liver; E87.6 Hypokalemia; J44.9 Chronic obstructive pulmonary disease, unspecified; I11.0 Hypertensive heart disease with heart failure; F32.A Depression, unspecified; E83.42 Hypomagnesemia; E83.39 Other disorders of phosphorus metabolism; G47.33 Obstructive sleep apnea (adult) (pediatric); K21.9 Gastro-esophageal reflux disease without esophagitis; E11.65 Type 2 diabetes mellitus with hyperglycemia; F41.9 Anxiety disorder, unspecified; K22.70 Barrett's esophagus without dysplasia; R13.10 Dysphagia, unspecified; Z88.8 Allergy status to other drugs, medicaments and biological substances; Z88.1 Allergy status to other antibiotic agents; Z79.4 Long term (current) use of insulin; Z79.899 Other long term (current) drug therapy; Z99.89 Dependence on other enabling machines and devices; Z90.710 Acquired absence of both cervix and uterus; Z90.49 Acquired absence of other specified parts of digestive tract; Z98.890 Other specified postprocedural states; Z85.3 Personal history of malignant neoplasm of breast; Z87.39 Personal history of other diseases of the musculoskeletal system and connective tissue; Z79.2 Long term (current) use of antibiotics; Z68.24 Body mass index [BMI] 24.0-24.9, adult
CPT/HCPCS: 0241U; 51701; 76770; 80048; 80053; 80069; 81001; 82330; 82533; 82947; 83605; 83690; 83735; 84100; 84145; 85025; 87040; 87086; 93005; 93010; 93970; 94660; 94762; 96361; 96365; 96375; 97110; 97129; 97162; 97166; 97530; 97535; 99285-25; A9270; J0696; J1642; J1650; J1815; J3475; J3480; J7030; J7050; J7060

== ENCOUNTER → 2022-12-21 | Outpatient (CLI) | payer MEDICARE, BC ==
[~2022-12-21] MED LIST changes: +BUME1 PO; +LOPE2C PO; +MICONAZOLE NIT130 GM TOP; +MIRT15 PO; +NYSTATIN100000 U10 PO; +POTA8 PO; +XARELTO20 MG PO
== END ==
LOC: LAB 14:32 → LAB SHORT 14:32
DX: N30.81 Other cystitis with hematuria (principal)
CPT/HCPCS: 87086; 87106

== ENCOUNTER → 2023-01-02 | Outpatient (CLI) | payer MEDICARE, BC | LOC: LAB 12:00 → LAB SHORT 12:00 | DX: E87.6 Hypokalemia (principal); R35.89 Other polyuria | CPT/HCPCS: 87086; 87102 ==

== ENCOUNTER → 2023-02-14 | Outpatient (CLI) | payer MEDICARE, BC | END | disposition home or self-care (01) | LOC: LAB 10:40 → LAB SHORT 10:40 | DX: N39.0 Urinary tract infection, site not specified (principal) | CPT/HCPCS: 87086 ==

== ENCOUNTER 2023-04-07 22:48 | Emergency (ER) | payer OTHER, MEDICARE, BC ==
[~2023-04-07] VITALS: Ht 149.9 cm; Wt 117.9 kg
[2023-04-07] MEDS ORDERED: DOCUZEN 8.6-501 EACH PO (23:01)
[2023-04-07] MEDS ORDERED: CEPH500 PO (23:01)
[2023-04-07] MEDS ORDERED: NALOXONE HCL4 MG (23:01)
[2023-04-07] MEDS ORDERED: Avidoxy100 MG PO (23:01)
[2023-04-07] MEDS ORDERED: HYDROCODONE-AC1 EA19 PO (23:02)
[2023-04-07] MEDS ORDERED: LOMOTIL 2.5-0.1 EACH PO (23:02)
[2023-04-07 23:27] VITALS: BP 115/84
[2023-04-08] MEDS ORDERED: Robaxin750 MG PO (00:03)
== END 2023-04-08 00:11 | disposition home or self-care (01) ==
LOC: ER 22:48
DX: M62.830 Muscle spasm of back (principal); V89.2XXA Person injured in unspecified motor-vehicle accident, traffic, initial encounter; E11.9 Type 2 diabetes mellitus without complications; J44.9 Chronic obstructive pulmonary disease, unspecified; I11.9 Hypertensive heart disease without heart failure; K21.9 Gastro-esophageal reflux disease without esophagitis; F41.9 Anxiety disorder, unspecified; Z88.1 Allergy status to other antibiotic agents; Z88.8 Allergy status to other drugs, medicaments and biological substances; Z79.899 Other long term (current) drug therapy; Z79.4 Long term (current) use of insulin
CPT/HCPCS: 99283; A9270

== ENCOUNTER → 2023-06-02 | Outpatient (CLI) | payer MEDICARE, BC ==
[~2023-06-02] MED LIST changes: +Avidoxy100 MG PO; +DOCUZEN 8.6-501 EACH PO; +HYDROCODONE-AC1 EA19 PO; +NALOXONE HCL4 MG; +Robaxin750 MG PO
[2023-06-02 16:47] LABS: BASOPHILS ABSOLUTE AUTO 0.01 K/mm3 (0.00-0.23); BASOPHILS PERCENT AUTO 0 % (0-2); EOSINOPHILS PERCENT AUTO 0 % (0-6); Hematocrit 36.7 % (33.0-51.0); Hemoglobin 11.9 g/dL (11.5-16.0); IMMATURE GRAN ABSOLUTE AUTO 0.03 K/mm3 (0.00-0.10); IMMATURE GRAN PERCENT AUTO 0 % (0-1); LYMPHOCYTES ABSOLUTE AUTO 0.58 K/mm3 (0.84-5.20); LYMPHOCYTES PERCENT AUTO 8 % (21-46); MONOCYTES ABSOLUTE AUTO 0.13 K/mm3 (0.16-1.47); MONOCYTES PERCENT AUTO 2 % (4-13); Mean Corpuscular HGB 35.8 pg (26.0-34.0); Mean Corpuscular HGB Conc 32.4 g/dL (31.5-36.5); Mean Corpuscular Volume 111 fL (80-100); Mean Platelet Volume 10.3 fL (9.1-12.4); NEUTROPHILS ABSOLUTE AUTO 6.41 K/mm3 (1.96-9.15); NEUTROPHILS PERCENT AUTO 90 % (41-73); Platelet Count 153 K/mm3 (150-400); RDW Standard Deviation 69.1 fL (35.1-46.3); Red Blood Cell Count 3.32 M/mm3 (3.80-5.20); White Blood Cell Count 7.16 K/mm3 (4.00-11.30)
[2023-06-02 17:03] LABS: Albumin, Blood 2.4 g/dL (3.4-5.0); Albumin/Globulin Ratio 0.6 (0.8-1.8); Bilirubin, Total 0.7 mg/dL (0.1-1.0); Bun/Creatinine Ratio 21.9 (12.0-20.0); Creatinine, Blood 0.64 mg/dL (0.40-1.00); Potassium, Blood 3.8 mmol/L (3.5-5.5); Total Protein, Blood 6.4 g/dL (6.4-8.2)
[2023-06-02 17:31] LABS: Prothrombin Time Results 10.5 Sec (9.7-11.5)
== END ==
LOC: LAB SHORT 16:42 → LAB 16:42
PROVIDERS: Emergency Medicine
DX: R31.9 Hematuria, unspecified (principal)
CPT/HCPCS: 80053; 85025; 85610; 85730

== ENCOUNTER → 2023-06-08 | Outpatient (CLI) | payer MEDICARE, BC | END | disposition home or self-care (01) | LOC: LAB SHORT 16:30 → LAB 16:30 | DX: N39.0 Urinary tract infection, site not specified (principal) | CPT/HCPCS: 87077; 87086; 87186 ==

== ENCOUNTER 2023-06-25 23:44 | Emergency (ER) | payer MEDICARE, BC ==
[~2023-06-25] VITALS: Ht 149.9 cm; Wt 68.0 kg
[2023-06-26 00:31] LABS: Source, Urine Clean Catch
[2023-06-26 00:34] LABS: Bilirubin, Urine Neg (Neg); Blood, Urine 4+ (Neg); Glucose Qualitative, Urine 1+ (Neg); Ketones, Urine 2+ (Neg); Leukocyte Esterase, Urine Neg (Neg); Nitrite, Urine Neg (Neg); Protein, Urine 4+ (Neg); Urobilinogen, Urine NORM (Normal)
[2023-06-26 00:40] LABS: Appearance, Urine Turbid (Clear); Color, Urine Red (P-Yellow)
[2023-06-26 00:42] LABS: Bacteria Mod /hpf; Red Blood Cells, Urine TNTC /hpf (0-2); Squamous Epithelial Cells Not Seen /hpf (Few); White Blood Cells, Urine 25-50 /hpf (0-5)
[2023-06-26 03:15] LABS: BASOPHILS ABSOLUTE AUTO 0.01 K/mm3 (0.00-0.23); BASOPHILS PERCENT AUTO 0 % (0-2); EOSINOPHILS PERCENT AUTO 0 % (0-6); Hemoglobin 9.6 g/dL (11.5-16.0); IMMATURE GRAN ABSOLUTE AUTO 0.06 K/mm3 (0.00-0.10); IMMATURE GRAN PERCENT AUTO 1 % (0-1); LYMPHOCYTES ABSOLUTE AUTO 0.96 K/mm3 (0.84-5.20); LYMPHOCYTES PERCENT AUTO 11 % (21-46); MONOCYTES ABSOLUTE AUTO 0.99 K/mm3 (0.16-1.47); MONOCYTES PERCENT AUTO 11 % (4-13); Mean Corpuscular HGB 36.6 pg (26.0-34.0); Mean Corpuscular HGB Conc 34.3 g/dL (31.5-36.5); Mean Corpuscular Volume 107 fL (80-100); Mean Platelet Volume 10.4 fL (9.1-12.4); NEUTROPHILS PERCENT AUTO 78 % (41-73); Platelet Count 155 K/mm3 (150-400); RDW Coefficient Variation 16.9 % (11.7-14.2); RDW Standard Deviation 65.4 fL (35.1-46.3); Red Blood Cell Count 2.62 M/mm3 (3.80-5.20); White Blood Cell Count 9.12 K/mm3 (4.00-11.30)
[2023-06-26 03:35] LABS: Albumin, Blood 2.1 g/dL (3.4-5.0); Albumin/Globulin Ratio 0.6 (0.8-1.8); Bilirubin, Total 0.5 mg/dL (0.1-1.0); Bun/Creatinine Ratio 42.8 (12.0-20.0); Calcium, Blood 8.5 mg/dL (8.5-10.1); Creatinine, Blood 0.42 mg/dL (0.40-1.00); Globulin, Blood 3.5 g/dL (2.2-4.0); Potassium, Blood 4.2 mmol/L (3.5-5.5); Total Protein, Blood 5.6 g/dL (6.4-8.2)
[2023-06-26 04:00] VITALS: BP 101/72
[2023-06-26 05:56] LABS: Hematocrit 26.9 % (33.0-51.0); Hemoglobin 9.1 g/dL (11.5-16.0)
== END 2023-06-26 07:09 | disposition home or self-care (01) ==
LOC: ER 23:44
PROVIDERS: Emergency Medicine; Student in an Organized Health Care Education/Training Program
DX: R31.0 Gross hematuria (principal); I11.0 Hypertensive heart disease with heart failure; I50.30 Unspecified diastolic (congestive) heart failure; E11.9 Type 2 diabetes mellitus without complications; J44.89 Other specified chronic obstructive pulmonary disease; G47.33 Obstructive sleep apnea (adult) (pediatric); K21.9 Gastro-esophageal reflux disease without esophagitis; K22.70 Barrett's esophagus without dysplasia; C50.919 Malignant neoplasm of unspecified site of unspecified female breast; Z79.01 Long term (current) use of anticoagulants; Z79.4 Long term (current) use of insulin; Z79.899 Other long term (current) drug therapy; Z88.1 Allergy status to other antibiotic agents; Z88.8 Allergy status to other drugs, medicaments and biological substances
CPT/HCPCS: 74177; 80053; 81001; 85014; 85018; 85025; 87086; 96374-59; 99284-25; J1642; Q9967

== ENCOUNTER 2023-07-04 15:24 | Emergency (ER) | payer MEDICARE, BC ==
[~2023-07-04] VITALS: Ht 165.1 cm; Wt 113.8 kg
[2023-07-04] MEDS ORDERED: Lactated Ringer's 1,000 ML IV ONE (17:35)
--- NOTE | 2023-07-04 18:06 | NUR ---
Spiritual Care | Physician Request Dr. Wells request this neuro psych sales specialist to visit with the Pt. and her daughter at bedside. Pt. is awake and welcomes my visit remembering this neuro psych sales specialist from a previous hospitalization. The Pt. clearly verbalized that she "was ready to go to [facility] The Pt. and daughter verbalized an expectation that they will be discharged home to hospice. Pastoral care and theraputic listening with a calming presence was used to bring the Pt. more comfort. Prayed a prayer of transition with the Pt. and daughter. Both verbalized permission to communicate with the Pts. catering manager about her hospice decision. Pt. and daughter both verbalize gratitude for the spiritual care visit and tranistional blessing.
[2023-07-04 18:35] LABS: Hematocrit 26.5 % (33.0-51.0); Hemoglobin 9.1 g/dL (11.5-16.0); Mean Corpuscular HGB 35.3 pg (26.0-34.0); Mean Corpuscular HGB Conc 34.3 g/dL (31.5-36.5); Mean Corpuscular Volume 103 fL (80-100); Mean Platelet Volume 10.8 fL (9.1-12.4); NRBC ABSOLUTE 0.22 K/mm3 (0.00-0.02); NRBC Auto 6.6 /100 WBC (0.0-0.2); Platelet Count 166 K/mm3 (150-400); RDW Coefficient Variation 16.7 % (11.7-14.2); RDW Standard Deviation 61.7 fL (35.1-46.3); Red Blood Cell Count 2.58 M/mm3 (3.80-5.20); White Blood Cell Count 3.34 K/mm3 (4.00-11.30)
[2023-07-04 18:42] LABS: Albumin, Blood 2.2 g/dL (3.4-5.0); Albumin/Globulin Ratio 0.6 (0.8-1.8); Bilirubin, Total 0.8 mg/dL (0.1-1.0); Calcium, Blood 8.5 mg/dL (8.5-10.1); Creatinine, Blood 0.35 mg/dL (0.40-1.00); Globulin, Blood 3.5 g/dL (2.2-4.0); Potassium, Blood 4.2 mmol/L (3.5-5.5); Total Protein, Blood 5.7 g/dL (6.4-8.2)
[2023-07-04 19:14] LABS: BAND PERCENT MAN 15 % (0-8); BASOPHILS PERCENT MAN 0 % (0-2); EOSINOPHILS PERCENT MAN 0 % (0-6); LYMPHOCYTES % ATYPICAL MANUAL 1 % (0-0); LYMPHOCYTES ABSOLUTE MAN 1.03 K/mm3 (0.84-5.20); LYMPHOCYTES PERCENT MAN 30 % (21-46); METAMYELOCYTE ABSOLUTE MAN 0.06 K/mm3 (0.00-0.00); METAMYELOCYTE PERCENT MAN 2 % (0-0); MONOCYTES PERCENT MAN 6 % (4-13); NEUTROPHILS ABSOLUTE MAN 2.03 K/mm3 (1.96-9.15); SEG NEUTROPHILS PERCENT MAN 46 % (41-73); TOTAL CELLS COUNTED 100
[2023-07-04 20:10] VITALS: BP 132/90
== END 2023-07-04 20:21 | disposition home or self-care (01) ==
LOC: ER 15:24
PROVIDERS: Emergency Medicine
DX: E86.0 Dehydration (principal); R34 Anuria and oliguria; C50.919 Malignant neoplasm of unspecified site of unspecified female breast; E11.9 Type 2 diabetes mellitus without complications; J44.9 Chronic obstructive pulmonary disease, unspecified; G47.33 Obstructive sleep apnea (adult) (pediatric); I10 Essential (primary) hypertension; D68.51 Activated protein C resistance; K74.60 Unspecified cirrhosis of liver; F41.9 Anxiety disorder, unspecified; Z79.01 Long term (current) use of anticoagulants; Z79.899 Other long term (current) drug therapy; Z79.4 Long term (current) use of insulin; Z88.1 Allergy status to other antibiotic agents; Z88.8 Allergy status to other drugs, medicaments and biological substances
CPT/HCPCS: 80053; 85025; 96361; 96374; 99283-25; J1642; J7120